=== PATIENT | female | born 1955 | race Caucasian/White ===

== ENCOUNTER 2017-04-25 08:06 | Emergency (ER) | payer MEDICARE, OTHER ==
[~2017-04-25 08:06] MED LIST: LEVE500 PO
[2017-04-25 13:16] LABS: AUTOMATED NEUTROPHIL # 2.2 TH/MM3 (1.8-7.7); BASOPHIL % 0.4 % (0.0-2.0); EOSINOPHIL % 0.9 % (0.0-4.0); HEMATOCRIT 45.3 % (35.0-46.0); HEMO FLAGS DIFF FINAL; LYMPH % 49.9 % (9.0-44.0); LYMPHOCYTE # 2.5 TH/MM3 (1.0-4.8); MEAN CELL VOLUME 100.2 FL (80.0-100.0); MEAN CORPUSCULAR HEMOGLOBIN 34.8 PG (27.0-34.0); MEAN CORPUSCULAR HGB CONC 34.7 % (32.0-36.0); MONO % 5.6 % (0.0-8.0); NEUT % 43.2 % (16.0-70.0); PLATELET COUNT 230 TH/MM3 (150-450); RED BLOOD COUNT 4.52 MIL/MM3 (4.00-5.30); RED CELL DISTRIBUTION WIDTH 13.4 % (11.6-17.2); WHITE BLOOD COUNT 5.1 TH/MM3 (4.0-11.0)
[2017-04-25] MEDS ORDERED: DULC10SU3 RECTAL (13:28)
[2017-04-25] MEDS ORDERED: TYLE325T PO (13:28)
[2017-04-25] MEDS ORDERED: LEVE500S PO (13:28)
[2017-04-25] MEDS ORDERED: LORAZEPAM 2MG/ML INJ IM (13:28)
[2017-04-25] MEDS ORDERED: MILKSUS PO (13:28)
[2017-04-25 13:32] LABS: ALKALINE PHOSPHATASE 87 U/L (45-117); ALT (GPT) 22 U/L (10-53); ANION GAP 10 MEQ/L (5-15); AST (GOT) 22 U/L (15-37); BICARBONATE 22.2 MEQ/L (21.0-32.0); BLOOD UREA NITROGEN 10 MG/DL (7-18); CHLORIDE 110 MEQ/L (98-107); GLOMERULAR FILTRATION RATE 67 ML/MIN (>89); GLUCOSE,FASTING 119 MG/DL (74-99); POTASSIUM 3.7 MEQ/L (3.5-5.1); SODIUM (NA) 142 MEQ/L (136-145); TOTAL BILIRUBIN ADULT 0.7 MG/DL (0.2-1.0)
[2017-04-25] MEDS ORDERED: LORazepam 2 MG/ML VIAL IV ONE (13:45)
[2017-04-25] MEDS ORDERED: levETIRAcetam INJ 750 MG in SODIUM CHLORIDE 0.9% INJ 100 ML IV ONE (13:45)
--- NOTE | 2017-04-25 14:10 | PD ---
HPI Chief Complaint: seizure Time Seen by Provider: 08:15 Travel History International Travel<30 days: No Contact w/Intl Traveler<30days: No Traveled to known affect area: No History of Present Illness HPI Patient is a 61-year-old female with history of Down syndrome and seizures, who is brought in by EMS from the senior care due to continued seizure activity. Her EMS, patient is on Keppra and has been taking it at the senior care, but she continues to have breakthrough seizures. Patient is unable to provide any history due to her Down syndrome and dementia. PFSH Past Medical History Cancer: No Cardiovascular Problems: No Dementia: Yes Developmental Delay: Yes Diminished Hearing: No Endocrine: No Immune Disorder: No Musculoskeletal: No Psychiatric: No Reproductive: No Respiratory: No Seizures: Yes Past Surgical History Surgical History: Unable to Obtain Social History Alcohol Use: No (na) Tobacco Use: No (na) Substance Use: No Allergies-Medications (Allergen,Severity, Reaction): Coded Allergies: No Known Allergies (Unverified , 03/19/16) Reported Meds & Prescriptions Reported Meds & Active Scripts Active Reported Milk of Magnesia Liq (Magnesium Hydroxide) 400 Mg/5 Ml Susp 30 Ml PO Q4HR PRN Dulcolax Supp (Bisacodyl) 10 Mg Supp 10 Mg RECTAL DAILY PRN Tylenol (Acetaminophen) 325 Mg Tab 650 Mg PO Q4H PRN [Lorazepam 2MG/Ml Inj] 1 Mg IM Q8HR PRN Keppra Liq (Levetiracetam) 500 Mg/5 Ml Soln 1,000 Mg PO BID Review of Systems ROS Limitations: Other: (dementia) Physical Exam Narrative GENERAL: Awake and alert, but does not answer questions. SKIN: Focused skin assessment warm/dry. No wounds or signs of infection. HEAD: Atraumatic. Normocephalic. EYES: Pupils equal and round. No scleral icterus. Extraocular movements intact. ENT: Mucous membranes pink and moist. NECK: Trachea midline. No JVD. CARDIOVASCULAR: Regular rate and rhythm. No murmur appreciated. RESPIRATORY: No accessory muscle use. Clear to auscultation. Breath sounds equal bilaterally. GASTROINTESTINAL: Abdomen soft, non-tender, nondistended. MUSCULOSKELETAL: No obvious deformities. No clubbing. No cyanosis. No edema. NEUROLOGICAL: Awake and alert, does not speak. No obvious cranial nerve deficits. Motor grossly within normal limits. Data Data Orders Orders Ct Brain W/O Iv Contrast(Rout) (04/25/17 ) Complete Blood Count With Diff (04/25/17 08:49) Compreh Metabolic Profile, Op (04/25/17 08:49) Urinalysis - C+S If Indicated (04/25/17 08:49) Lorazepam Inj (Ativan Inj) (04/25/17 13:45) Levetiracetam Inj (Keppra Inj) (04/25/17 13:45) Labs Laboratory Tests Test 04/25/17 08:49 White Blood Count 5.1 TH/MM3 Red Blood Count 4.52 MIL/MM3 Hemoglobin 15.7 GM/DL Hematocrit 45.3 % Mean Corpuscular Volume 100.2 FL Mean Corpuscular Hemoglobin 34.8 PG Mean Corpuscular Hemoglobin Concent 34.7 % Red Cell Distribution Width 13.4 % Platelet Count 230 TH/MM3 Mean Platelet Volume 7.3 FL Neutrophils (%) (Auto) 43.2 % Lymphocytes (%) (Auto) 49.9 % Monocytes (%) (Auto) 5.6 % Eosinophils (%) (Auto) 0.9 % Basophils (%) (Auto) 0.4 % Neutrophils # (Auto) 2.2 TH/MM3 Lymphocytes # (Auto) 2.5 TH/MM3 Monocytes # (Auto) 0.3 TH/MM3 Eosinophils # (Auto) 0.0 TH/MM3 Basophils # (Auto) 0.0 TH/MM3 CBC Comment DIFF FINAL Differential Comment Sodium Level 142 MEQ/L Potassium Level 3.7 MEQ/L Chloride Level 110 MEQ/L Carbon Dioxide Level 22.2 MEQ/L Anion Gap 10 MEQ/L Blood Urea Nitrogen 10 MG/DL Creatinine 0.86 MG/DL Estimat Glomerular Filtration Rate 67 ML/MIN Fasting Glucose 119 MG/DL Calcium Level 8.7 MG/DL Total Bilirubin 0.7 MG/DL Aspartate Amino Transf (AST/SGOT) 22 U/L Alanine Aminotransferase (ALT/SGPT) 22 U/L Alkaline Phosphatase 87 U/L Total Protein 7.2 GM/DL Albumin 3.1 GM/DL MDM Medical Decision Making Medical Screen Exam Complete: Yes Emergency Medical Condition: Yes Medical Record Reviewed: Yes Differential Diagnosis Seizures versus electrolyte abnormality versus dehydration Narrative Course Patient is a 61-year-old female with history of seizures and Down syndrome, brought in by EMS for seizure activity. Patient is awake and alert, but she does not speak. Exam shows no abnormalities. IV established, labs sent. Labs show no acute abnormalities. CT of her head shows no acute abnormalities. Family reported to see some twitching of her arms, which they say is seizure activity for her. She was given a dose of Ativan for this. I spoke with Dr. Barrios of neurology who suggests increasing her Keppra to 1500 mg twice a day. She is written a new prescription. Should be sent back to the senior care. Advised follow-up with neurology. Advised to return to the ED as needed for any worsening symptoms. Diagnosis Primary Impression: Observed seizure-like activity Additional Impression: Dementia Qualified Codes: F02.80 - Dementia in other diseases classified elsewhere without behavioral disturbance Patient Instructions: General Instructions, Recurrent Seizures in Adults (ED) Additional Instructions: Increase Keppra to 1500 mg twice a day. Follow-up with a neurologist. Return to the ED as needed for any worsening symptoms. Disposition: 03 DISCHARGE TO SNF Condition: Stable Ana Antunez MD Apr 25, 2017 14:10
--- NOTE | 2017-04-25 14:44 | RADRPT ---
EXAM DATE/TIME: 04/25/2017 10:15 [facility] COMPARISON: No previous studies available for comparison. INDICATIONS : Seizure. RADIATION DOSE: 24.49 CTDIvol (mGy) MEDICAL HISTORY : Downs syndrome SURGICAL HISTORY : Non-responsive. ENCOUNTER: Initial ACUITY: 1 day PAIN SCALE: 0/10 LOCATION: cranial TECHNIQUE: Multiple contiguous axial images were obtained of the head. Using automated exposure control and adj ustment of the mA and/or kV according to patient size, radiation dose was kept as low as reasonably a chievable to obtain optimal diagnostic quality images. DICOM format image data is available electro nically for review and comparison. FINDINGS: CEREBRUM: The ventricles are normal for age. Cerebral atrophy. No evidence of midline shift, mass lesion, hemor rhage or acute infarction. No extra-axial fluid collections are seen. POSTERIOR FOSSA: The cerebellum and brainstem are intact. The 4th ventricle is midline. The cerebellopontine angle i s unremarkable. EXTRACRANIAL: The visualized portion of the orbits is intact. SKULL: The calvaria is intact. No evidence of skull fracture. CONCLUSION: Cerebral atrophy without acute intracranial abnormality. Alonso Davis MD on April 25, 2017 at 10:31 Board Certified Radiologist. This report was verified electronically.
[2017-04-25 14:58] LABS: URINE COLOR YELLOW (YELLW/STRAW)
[2017-04-25 14:59] LABS: GLUCOSE,URINE NEG (NEG); KETONE, URINE 10 mg/dL (NEG)
[2017-04-25 15:00] LABS: BLOOD, URINE NEG (NEG); MUCUS URINE FEW /lpf (OCC); NITRITE,URINE NEG (NEG)
[2017-04-25 15:01] LABS: SQUAMOUS EPITHELIAL CELL URINE <1 /hpf (0-5)
[2017-04-25 15:02] LABS: BACTERIA, URINE RARE /hpf; COMMENT (UR) CATH-CULTURE IND; CULTURE IF INDICATED CATH CULTURE IND
== END 2017-04-25 14:46 ==
LOC: NEPC 08:06
DX: R56.9 Unspecified convulsions (principal); F02.80 Dementia in other diseases classified elsewhere, unspecified severity, without behavioral disturbance, psychotic disturbance, mood disturbance, and anxiety; Q90.9 Down syndrome, unspecified; F79 Unspecified intellectual disabilities
CPT/HCPCS: 70450; 80053; 81001; 85025; 87086; 96365; 96375

== ENCOUNTER 2017-12-20 07:15 | Emergency (ER) | payer MEDICARE, OTHER ==
[~2017-12-20] VITALS: Ht 124.5 cm; Wt 40.9 kg
[~2017-12-20 07:15] MED LIST changes: +DULC10SU3 RECTAL; -LEVE500 PO; +LEVE500S PO; +LORAZEPAM 2MG/ML INJ IM; +MILKSUS PO; +TYLE325T PO
[2017-12-20 07:21] VITALS: BP 94/50; PULSE 83; RESP 16; TEMP 98; O2SAT 96
--- NOTE | 2017-12-20 08:12 | PD ---
HPI Chief Complaint: Seizure Time Seen by Provider: 07:50 Travel History International Travel<30 days: No Contact w/Intl Traveler<30days: No Traveled to known affect area: No History of Present Illness HPI This patient cannot provide any history or review of systems. She has Down syndrome and dementia. She is a assisted resident. I spoke with her brother at bedside. The patient is his baseline bedbound and nonverbal and cannot feed or dress herself. She has history of seizure disorder. She takes Keppra, last time she was here it was increased to 1500 twice daily was 8 months ago. According to her brother she has been seizure-free for 2 months. She had 3 seizures during the night. She arrives appearing postictal. PFSH Past Medical History Cancer: No Cardiovascular Problems: No Dementia: Yes Developmental Delay: Yes Diminished Hearing: No Endocrine: No Immune Disorder: No Musculoskeletal: No Psychiatric: No Reproductive: No Respiratory: No Seizures: Yes ?: Not Social History Alcohol Use: No (na) Tobacco Use: No (na) Substance Use: No Allergies-Medications (Allergen,Severity, Reaction): Coded Allergies: No Known Allergies (Unverified , 03/19/16) Reported Meds & Prescriptions Reported Meds & Active Scripts Active Reported Milk of Magnesia Liq (Magnesium Hydroxide) 400 Mg/5 Ml Susp 30 Ml PO Q4HR PRN Dulcolax Supp (Bisacodyl) 10 Mg Supp 10 Mg RECTAL DAILY PRN Tylenol (Acetaminophen) 325 Mg Tab 650 Mg PO Q4H PRN [Lorazepam 2MG/Ml Inj] 1 Mg IM Q8HR PRN Keppra Liq (Levetiracetam) 500 Mg/5 Ml Soln 1,000 Mg PO BID Review of Systems ROS Limitations: Clinical Condition, Altered Mental Status, Poor Historian Physical Exam Narrative GENERAL: Down syndrome features are present. She is drowsy/postictal appearing. SKIN: Focused skin assessment reveals no rash and nodules. Skin is Warm and dry. HEAD: Atraumatic. Normocephalic. EYES: Pupils equal and round. No scleral icterus. No injection or drainage. ENT: No nasal bleeding but has crusted rhinorrhea. Mucous membranes pink and moist. Slight bruising to the tongue without laceration NECK: Trachea midline. No JVD. CARDIOVASCULAR: Regular rate and rhythm. No murmur appreciated. RESPIRATORY: No accessory muscle use. Clear to auscultation. Breath sounds equal bilaterally. GASTROINTESTINAL: Abdomen soft, non-tender, nondistended. Hepatic and splenic margins not palpable. MUSCULOSKELETAL: No obvious deformities. No clubbing. No cyanosis. No edema. NEUROLOGICAL: Normal gag reflex. Symmetric round pupils. Opens eyes to pain stimuli. She is nonverbal. Does not cooperate for motor strength or sensation testing PSYCHIATRIC: Impossible to geriatric nurse practitioner mood or affect or insight or judgment Data Data Last Documented VS Vital Signs Date Time Temp Pulse Resp B/P (MAP) Pulse Ox O2 Delivery O2 Flow Rate FiO2 12/20/17 13:00 72 16 103/60 (74) 12/20/17 07:27 96 12/20/17 07:21 98.0 Orders Orders Complete Blood Count With Diff (12/20/17 08:02) Basic Metabolic Panel (Bmp) (12/20/17 08:02) Iv Access Insert/Monitor (12/20/17 08:02) Sodium Chlorid 0.9% 500 Ml Inj (Ns 500 M (12/20/17 08:15) Labs Laboratory Tests Test 12/20/17 07:55 White Blood Count 4.5 TH/MM3 Red Blood Count 4.38 MIL/MM3 Hemoglobin 15.1 GM/DL Hematocrit 44.2 % Mean Corpuscular Volume 101.0 FL Mean Corpuscular Hemoglobin 34.6 PG Mean Corpuscular Hemoglobin Concent 34.2 % Red Cell Distribution Width 13.4 % Platelet Count 253 TH/MM3 Mean Platelet Volume 7.4 FL Neutrophils (%) (Auto) 71.6 % Lymphocytes (%) (Auto) 20.7 % Monocytes (%) (Auto) 6.8 % Eosinophils (%) (Auto) 0.3 % Basophils (%) (Auto) 0.6 % Neutrophils # (Auto) 3.2 TH/MM3 Lymphocytes # (Auto) 0.9 TH/MM3 Monocytes # (Auto) 0.3 TH/MM3 Eosinophils # (Auto) 0.0 TH/MM3 Basophils # (Auto) 0.0 TH/MM3 CBC Comment DIFF FINAL Differential Comment Blood Urea Nitrogen 15 MG/DL Creatinine 0.79 MG/DL Random Glucose 86 MG/DL Calcium Level 8.5 MG/DL Sodium Level 143 MEQ/L Potassium Level 3.9 MEQ/L Chloride Level 110 MEQ/L Carbon Dioxide Level 25.5 MEQ/L Anion Gap 8 MEQ/L Estimat Glomerular Filtration Rate 74 ML/MIN MDM Medical Decision Making Medical Screen Exam Complete: Yes Emergency Medical Condition: Yes Medical Record Reviewed: Yes Differential Diagnosis Breakthrough seizure, status epilepticus, tremor Narrative Course I have reviewed the patient's electronic medical record. She was here April 2017 with breakthrough seizure IV placed and labs sent Patient appears postictal I am giving her half liter of normal saline and then will reassess blood pressure I observed her for many hours and there is been no recurrence of seizure activity CBC and metabolic studies are reasonably normal After IV fluid her blood pressures up to 103 systolic which seems to be near her baseline We will send back to the assisted There is been no seizure in 2 months prior to today so I am not going to change her medications Diagnosis Primary Impression: Breakthrough seizure Additional Impression: Down syndrome Additional Instructions: Follow-up with assisted MD and/or neurologist Med/Other Pt SpecificInfo: Other Disposition: 03 DISCHARGE TO SNF Condition: Stable Terrell Moreno MD Dec 20, 2017 08:12
[2017-12-20] MEDS ORDERED: SODIUM CHLORID 0.9% 500 ML INJ 500 ML IV SCH (08:15)
[2017-12-20 08:26] LABS: AUTOMATED NEUTROPHIL # 3.2 TH/MM3 (1.8-7.7); BASOPHIL % 0.6 % (0.0-2.0); EOSINOPHIL % 0.3 % (0.0-4.0); HEMATOCRIT 44.2 % (35.0-46.0); HEMOGLOBIN 15.1 GM/DL (11.6-15.3); LYMPH % 20.7 % (9.0-44.0); LYMPHOCYTE # 0.9 TH/MM3 (1.0-4.8); MEAN CORPUSCULAR HEMOGLOBIN 34.6 PG (27.0-34.0); MEAN CORPUSCULAR HGB CONC 34.2 % (32.0-36.0); MEAN PLATELET VOLUME 7.4 FL (7.0-11.0); MONO % 6.8 % (0.0-8.0); MONOCYTE # 0.3 TH/MM3 (0-0.9); NEUT % 71.6 % (16.0-70.0); PLATELET COUNT 253 TH/MM3 (150-450); RED BLOOD COUNT 4.38 MIL/MM3 (4.00-5.30); RED CELL DISTRIBUTION WIDTH 13.4 % (11.6-17.2); WHITE BLOOD COUNT 4.5 TH/MM3 (4.0-11.0)
[2017-12-20 08:48] LABS: BICARBONATE 25.5 MEQ/L (21.0-32.0); CALCIUM 8.5 MG/DL (8.5-10.1); CREATININE 0.79 MG/DL (0.50-1.00)
[2017-12-20 09:07] VITALS: BP 88/62
[2017-12-20 11:00] VITALS: BP 124/70
[2017-12-20 13:00] VITALS: BP 103/60; PULSE 72; RESP 16
== END 2017-12-20 16:10 ==
LOC: NEPC 07:15
DX: R56.9 Unspecified convulsions (principal); Q90.9 Down syndrome, unspecified; F03.90 Unspecified dementia, unspecified severity, without behavioral disturbance, psychotic disturbance, mood disturbance, and anxiety; Z74.01 Bed confinement status
CPT/HCPCS: 80048; 85025; 96360; 99284; J7040

== ENCOUNTER 2018-06-17 15:25 | Inpatient (IN) ==
[2018-06-17] MEDS ORDERED: Acetaminophen 325 MG Tablet PO ONE (15:58)
[2018-06-17] MEDS ORDERED: Vancomycin Inj 1,000 MG in Sodium Chlor 0.9% Inj 250 ML IV.SIG STA (15:58)
[2018-06-17] MEDS ORDERED: MethylPREDNISolone Sod Succinate Inj 40 MG/ML Vial IV.PUSH ONE (16:04)
[2018-06-17] MEDS ORDERED: Sod Chloride 0.9% Inj 1,000 ML IV.SIG SCH (16:15)
[2018-06-17] MEDS ORDERED: Acetaminophen 650 MG Supp RECTAL ONE (16:17)
--- NOTE | 2018-06-17 16:22 | ED ---
HPI General Chief complaint: Respiratory Symptoms Stated complaint: coughing/breathing problems Time Seen by Provider: 06/17/18 15:58 Source: EMS Mode of arrival: EMS Limitations: altered mental status History of Present Illness HPI Narrative: The patient is a 63-year-old female who [facility] The patient vomited today at lunch coffee-ground emesis. Wheezing was also observed. The patient was given Zofran. EMS reports axillary temperature of 101.0. Pulse 110 with a systolic blood pressure 95. Patient has history of Down syndrome with dementia and epilepsy. History obtained from records and EMS report. Related Data Home Medications Medication Instructions Recorded Confirmed acetaminophen [Tylenol] 650 mg PO Q4H PRN 06/17/18 06/17/18 alum-mag hydroxide-simeth [Maalox 30 ml PO Q4HR PRN 06/17/18 06/17/18 Advanced] bisacodyl [Dulcolax (bisacodyl)] 10 mg OR DAILY PRN 06/17/18 06/17/18 levetiracetam 1,000 mg PO BID 06/17/18 06/17/18 loperamide 2 mg PO PRN PRN 06/17/18 06/17/18 lorazepam 1 mg IM Q8H PRN 06/17/18 06/17/18 magnesium hydroxide [Milk of 30 ml PO Q4HR PRN 06/17/18 06/17/18 Magnesia] Allergies Allergy/AdvReac Type Severity Reaction Status Date / Time No Known Allergies Allergy Verified 06/17/18 16:40 Review of Systems ROS Unobtainable ROS Unobtainable: unobtainable due to mental condition PMF Medical History Medical History Cognitive and neurobehavioral dysfunction (Acute) Down's syndrome (Acute) History of dementia (Acute) Hx of seizure disorder (Acute) Social History Social History Substance History: No History of Abuse Second Hand Smoke Exposure: No Smoking Status: Never smoker How Often Do You Have a Drink Containing Alcohol: Never Recent Travel in [place] within the Last 8 Weeks: No Recent Out of Country Travel within the Last 8 Weeks: No Exam Narrative Exam Narrative: GENERAL: 63-year-old female mild distress, Down's faces, unable to answer questions with history and physical SKIN: Focused skin assessment warm/dry. HEAD: Atraumatic. Normocephalic. EYES: Pupils equal and round. No scleral icterus. No injection or drainage. ENT: No nasal bleeding or discharge. Mucous membranes are dry. NECK: Trachea midline. No JVD. CARDIOVASCULAR: Tachycardia. Regular rhythm. RESPIRATORY: Wheezing is present bilaterally. Respiratory rate about 20. GASTROINTESTINAL: Abdomen soft, non-tender, nondistended. Hepatic and splenic margins not palpable. MUSCULOSKELETAL: No obvious deformities. No clubbing. No cyanosis. No edema. NEUROLOGICAL: Cranial nerves appear symmetric. Conjugate gaze with equal and reactive pupils. PSYCHIATRIC: Unable to assess. Course Initial Documented Vital Signs Temperature 101 F H 06/17/18 16:10 Pulse Rate 110 H 06/17/18 16:10 Respiratory Rate 28 H 06/17/18 16:10 Blood Pressure 156/68 H 06/17/18 16:10 Pulse Oximetry 90 L 06/17/18 16:10 Last Documented Vital Signs Temperature 101 F H 06/17/18 16:10 Pulse Rate 103 H 06/17/18 16:20 Respiratory Rate 24 06/17/18 16:20 Blood Pressure 156/68 H 06/17/18 16:10 Pulse Oximetry 96 06/17/18 16:20 Medical Decision Making MDM Narrative Medical decision making narrative: Patient arrives with sepsis due to fever and tachycardia.Patient arrives with sepsis due to fever and tachycardia. Symptoms brought to [facility] staff attention with coffee-ground emesis followed by wheezing on exam. The patient received albuterol nebs and 60 mg IV steroids ( instead of 125mg in keeping with guidelines). Crystalloid rehydration 30cc/kg. Lactact protocol. Cefepime and Vanco started. Blood cultures drawn. There is concern for aspiration pneumonia and/or pneumonia initially. Plain film interpretation reveals no obvious consolidation. Abdomen is nontender on exam. Urinalysis is pending which may be the etiology for fever if there is in fact no pneumonia. Upon receipt of workup hospitalist service to be paged. d/w Dr Vicente at 551pm for [facility]. Aggregate critical care time was 35 minutes. Time to perform other separately billable procedures was not included in the critical care time. My time did not include minutes spent treating any other patients simultaneously or on activities that did not directly contribute to the patient's treatment. The services I provided to this patient were to treat and/or prevent clinically significant deterioration that could result in: Septic shock, multiorgan dysfunction I provided critical care services requiring my management, as noted below: Chart data review, documentation time, medication orders and management, vital sign assessments/reviewing monitor data, ordering and reviewing lab tests, ordering and interpreting/reviewing x-rays and diagnostic studies, care of the patient and discussion of the patient with the admitting physicians. Medical Screen Exam Complete: Yes Emergency Medical Condition: Yes Differential Diagnosis Differential Diagnosis: Sepsis, severe sepsis, pneumonia, GI bleed Medical Records Medical records reviewed: Yes I reviewed the patient's medical records. Lab Data Lab results reviewed: Yes I reviewed the patient's lab results. Lab results narrative: Lactic 2.5 Result diagrams: 06/17/18 16:25 06/17/18 16:25 Lab Results 06/17/18 06/17/18 06/17/18 Range/Units 16:25 16:25 16:25 WBC 6.4 (4.0-11.0) th/mm3 RBC 4.08 (4.00-5.30) mil/mm3 Hgb 14.5 (11.6-15.3) gm/dL Hct 42.2 (35.0-46.0) % MCV 103.4 H (80.0-100.0) fL MCH 35.4 H (27.0-34.0) pg MCHC 34.3 (32.0-36.0) % RDW 13.6 (11.6-17.2) % Plt Count 197 (150-450) th/mm3 MPV 7.4 (7.0-11.0) fL Neut % (Auto) 75.4 H (16.0-70.0) % Lymph % (Auto) 18.2 (9.0-44.0) % Sutter % (Auto) 6.0 (0.0-8.0) % Eos % (Auto) 0.2 (0.0-4.0) % Baso % (Auto) 0.2 (0.0-2.0) % Neut # (Auto) 4.8 (1.8-7.7) th/mm3 Lymph # (Auto) 1.2 (1.0-4.8) th/mm3 Sutter # (Auto) 0.4 (0.0-0.9) th/mm3 Eos # (Auto) 0.0 (0.0-0.4) th/mm3 Baso # (Auto) 0.0 (0.0-0.2) th/mm3 WBC Differential . Differential Comment Auto diff final Sodium 137 (136-145) meq/L Potassium 4.3 (3.5-5.1) meq/L Chloride 103 (98-107) meq/L Carbon Dioxide 24.2 (21.0-32.0) meq/L Anion Gap 10 (5-15) meq/L BUN 19 H (7-18) mg/dL Creatinine 0.79 (0.50-1.00) mg/dL Estimated GFR 74 L (>89) mL/min Random Glucose 132 H (74-106) mg/dL Lactic Acid 2.5 H (0.4-2.0) mmol/L Calcium 8.6 (8.5-10.1) mg/dL Total Bilirubin 0.4 (0.2-1.0) mg/dL AST 22 (15-37) U/L ALT 25 (10-53) U/L Alkaline Phosphatase 71 (45-117) U/L Total Protein 7.8 (6.4-8.2) g/dL Albumin 3.1 L (3.4-5.0) g/dL Imaging Data Attestation: I personally reviewed and interpreted this imaging study as follows : Radiologist's impression: Chest X-Ray 06/17/18 15:59 CONCLUSION: Moderate cardiomegaly with mild failure. No alveolar consolidation. Discharge Plan Discharge Disposition Patient Disposition: 30 Still Patient Physicians Team ED Provider: Preston Laboy Primary Care Provider: José Haddad Rxs /Orders / Referrals /Forms Prescriptions: No Action acetaminophen [Tylenol] 325 mg Tablet 650 mg PO Q4H PRN (Reason: Pain/Discomfort/Temp above 102) RF: 0 loperamide 2 mg Capsule 2 mg PO PRN PRN (Reason: Diarrhea) RF: 0 bisacodyl [Dulcolax (bisacodyl)] 10 mg Suppository 10 mg OR DAILY PRN (Reason: If no results from Milk of Mag) RF: 0 alum-mag hydroxide-simeth [Maalox Advanced] 200-200-20 mg/5 mL Suspension 30 ml PO Q4HR PRN (Reason: Indigestion/Heartburn) RF: 0 lorazepam 2 mg/mL Syringe 1 mg IM Q8H PRN (Reason: Anxiety) RF: 0 levetiracetam 100 mg/mL Solution 1,000 mg PO BID RF: 0 magnesium hydroxide [Milk of Magnesia] 400 mg/5 mL Suspension 30 ml PO Q4HR PRN (Reason: Constipation) RF: 0 Status ED Status: With Doctor
--- NOTE | 2018-06-17 16:29 | XR ---
EXAM DATE: 06/17/2018 3:59 PM EDT AGE/SEX: 63 years / Female INDICATIONS: Fever. CLINICAL DATA: This is the patient's initial encounter. Patient reports that signs and symptoms have been present for 1 day and indicates a pain score of Nonresponsive. MEDICAL/SURGICAL HISTORY: . Down's Syndrome None. COMPARISON: [facility], CHEST SINGLE AP, 03/19/2016. . FINDINGS: Moderate cardiomegaly with mild interstitial edema. Minimal bibasilar parenchymal changes without con solidation. No pleural effusion. The portion of the bony skeleton visualized is unremarkable. CONCLUSION: Moderate cardiomegaly with mild failure. No alveolar consolidation. Electronically signed by: Silverio Stone MD 06/17/2018 4:27 PM EDT
[2018-06-17 16:56] LABS: Baso % (Auto) 0.2 % (0.0-2.0); Eos % (Auto) 0.2 % (0.0-4.0); Hematocrit 42.2 % (35.0-46.0); Hemoglobin 14.5 gm/dL (11.6-15.3); Lymph # (Auto) 1.2 th/mm3 (1.0-4.8); Lymph % (Auto) 18.2 % (9.0-44.0); Mean Corpuscular HGB Conc 34.3 % (32.0-36.0); Mean Corpuscular Hemoglobin 35.4 pg (27.0-34.0); Mean Corpuscular Volume 103.4 fL (80.0-100.0); Mean Platelet Volume 7.4 fL (7.0-11.0); Mono # (Auto) 0.4 th/mm3 (0.0-0.9); Neut # (Auto) 4.8 th/mm3 (1.8-7.7); Neut % (Auto) 75.4 % (16.0-70.0); Platelet Count 197 th/mm3 (150-450); Red Blood Count 4.08 mil/mm3 (4.00-5.30); Red Cell Distribution Width 13.6 % (11.6-17.2); White Blood Count 6.4 th/mm3 (4.0-11.0)
[2018-06-17 17:19] LABS: Albumin 3.1 g/dL (3.4-5.0); Anion Gap 10 meq/L (5-15); Aspartate Aminotransferase 22 U/L (15-37); Blood Urea Nitrogen 19 mg/dL (7-18); Calcium 8.6 mg/dL (8.5-10.1); Carbon Dioxide 24.2 meq/L (21.0-32.0); Chloride 103 meq/L (98-107); Glomerular Filtration Rate 74 mL/min (>89); Glucose,Random 132 mg/dL (74-106); Potassium 4.3 meq/L (3.5-5.1); Sodium 137 meq/L (136-145)
[2018-06-17 17:23] LABS: Alanine Aminotransferase 25 U/L (10-53); Alkaline Phosphatase 71 U/L (45-117); Total Protein 7.8 g/dL (6.4-8.2)
[2018-06-17] MEDS ORDERED: Acetaminophen 325 MG Tablet PO PRN (17:52)
[2018-06-17] MEDS ORDERED: Bisacodyl 10 MG Supp RECTAL PRN (17:52)
[2018-06-17] MEDS ORDERED: Vancomycin Consult Pharmacy OTHER PRN (19:33)
--- NOTE | 2018-06-17 19:35 | P.HPIM ---
History of Present Illness Primary Care Physician: José Haddad MD History of Present Illness: This is a 63-year-old female with a PMH of Down's Syndrome, Dementia and Seizure Disorder who was sent to the ER from SNF due to vomiting and fever of 101.0. Per report, pt had episode of coffee-ground emesis followed by wheezing and fever, concern for possible aspiration. Pt unable to provide history due to mental condition. On arrival, BP 156/68, HR 110, O2 sat 90% on RA, Temp 101. See unremarkable. Chemistry essentially unremarkable except for BUN 19. Lactic Acid 2.5. S/p Blood Cultures, Vanc/Cefepime. - Diagnosis (1) SIRS (systemic inflammatory response syndrome) (2) PNA (pneumonia) (3) Down syndrome (4) Seizure disorder Inpatient Certification: I certify that the inpatient services were ordered in accordance with Medicare regulations governing the order. This includes certification that hospital inpatient services are reasonable and necessary and in the case of services not specified as inpatient-only under 42 CFR 419.22(n), that they are appropriately provided as inpatient services in accordance to with the 2-midnight benchmark under 43 CFR 412.3(e) Estimated Total Length of Stay (Days): 3 Plans for Post Hospital Care: Home Review of Systems PAST FAMILY HISTORY: Unknown unobtainable due to mental condition PMFSH - History History Provided By: Medical Record - Medical History Medical History: Medical History (Last Updated 06/17/18 @ 16:52 by Ivis Mas) Cognitive and neurobehavioral dysfunction Down's syndrome History of dementia Hx of seizure disorder - Tobacco History Second Hand Smoke Exposure: No Smoking Status: Never smoker - Alcohol History How Often Do You Have a Drink Containing Alcohol: Never - Substance Use History Substance History: No History of Abuse - Travel History Recent Travel in the [place] Within the Last 8 Weeks: No Recent Travel Out of the Country Within the Last 8 Weeks: No - Immunization History Tetanus Immunization: Unsure Medications and Allergies Active Medications: Active Medications Acetaminophen (Tylenol) 650 mg PO Q4H PRN PRN Reason: Headache, fever, pain 1-4 Al Hydroxide/Mg Hydroxide (Milk Of Magnesia Liq) 30 ml PO Q12H PRN PRN Reason: Mild Constipation Albuterol (Duoneb Neb (Prn)) 1 ampul NEB Q15M PRN PRN Reason: WHEEZING Bisacodyl (Dulcolax Supp) 10 mg RECTAL DAILY PRN PRN Reason: SEVERE CONSITIPATION Enoxaparin Sodium (Lovenox Inj) 40 mg SQ Q24H JANNETH Sodium Chloride (Ns Inj) 1,000 mls @ 0 mls/hr IV.SIG BOLUS JANNETH Stop: 06/18/18 16:16 Last Infusion: 06/17/18 19:03 Dose: Infused Sodium Chloride (Ns Inj) 1,000 mls @ 100 mls/hr IV.CONT .Q10H JANNETH Lactulose (Lactulose Liq) 30 ml PO DAILY PRN PRN Reason: SEVERE CONSITIPATION Sennosides (Senokot) 17.2 mg PO Q12H PRN PRN Reason: Moderate Constipation Allergies Allergy/AdvReac Type Severity Reaction Status Date / Time No Known Allergies Allergy Verified 06/17/18 16:40 Home Medications Medication Instructions Recorded Confirmed Type acetaminophen [Tylenol] 650 mg PO Q4H PRN 06/17/18 06/17/18 History alum-mag hydroxide-simeth [Maalox 30 ml PO Q4HR PRN 06/17/18 06/17/18 History Advanced] bisacodyl [Dulcolax (bisacodyl)] 10 mg MT DAILY PRN 06/17/18 06/17/18 History levetiracetam 1,000 mg PO BID 06/17/18 06/17/18 History loperamide 2 mg PO PRN PRN 06/17/18 06/17/18 History lorazepam 1 mg IM Q8H PRN 06/17/18 06/17/18 History magnesium hydroxide [Milk of 30 ml PO Q4HR PRN 06/17/18 06/17/18 History Magnesia] Exam Vital signs: Vital Signs 06/17/18 16:10 06/17/18 16:20 06/17/18 19:10 Temperature 101 F H Pulse Rate 110 H 103 H 93 H Respiratory Rate 28 H 24 28 H Blood Pressure 156/68 H 133/77 Pulse Oximetry 93 L 96 97 Intake & Output 06/17/18 06/17/18 06/18/18 06:59 18:59 06:59 Intake Total 1100 / 1100 50 / 50 Balance 1100 / 1100 50 / 50 Weight 135 kg Intake: IV 1100 / 1100 50 / 50 Maxipime Inj 2,000 MG In NS Inj 100 / 100 100 ML @ 200 mls/hr IV.SIG STAT STA Rx#:[id number] NS Inj 1,000 ML @ Wide Open IV. 1000 / 1000 50 / 50 SIG BOLUS JANNETH Rx#:[id number] Narrative: PE: GENERAL: Middle-aged white female w/ Down's in no acute distress, unable to answer questions. SKIN: Focused skin assessment warm and dry. HEENT: PERRLA, EOMI. No scleral icterus or conjunctival pallor. No lid lag or facial droop. CARDIOVASCULAR: Regular rate and rhythm. No obvious murmurs to auscultation. No chest tenderness to palpation. RESPIRATORY: No obvious rhonchi or wheezing. Clear to auscultation. Breath sounds equal bilaterally. GASTROINTESTINAL: Abdomen soft, non-tender, nondistended. BS normal. MUSCULOSKELETAL: Extremities without clubbing, cyanosis, or edema. No obvious deformities. NEUROLOGICAL: Awake, alert. No focal neurologic deficits. Moving both upper and lower extremities spontaneously. PSYCHIATRIC: Appropriate mood and affect. Insight and judgment normal. Results - Labs CBC & Chem 7: 06/17/18 16:25 06/17/18 16:25 Labs: Short CBC 06/17/18 Range/Units 16:25 WBC 6.4 (4.0-11.0) th/mm3 Hgb 14.5 (11.6-15.3) gm/dL Hct 42.2 (35.0-46.0) % Plt Count 197 (150-450) th/mm3 BMP 06/17/18 16:25 Sodium 137 Potassium 4.3 Chloride 103 Carbon Dioxide 24.2 BUN 19 H Creatinine 0.79 Calcium 8.6 Liver Function 06/17/18 Range/Units 16:25 Total Bilirubin 0.4 (0.2-1.0) mg/dL AST 22 (15-37) U/L ALT 25 (10-53) U/L Alkaline Phosphatase 71 (45-117) U/L Albumin 3.1 L (3.4-5.0) g/dL - Imaging Impressions Chest X-Ray 06/17/18 15:59 CONCLUSION: Moderate cardiomegaly with mild failure. No alveolar consolidation. Caprini VTE Risk Assessment Caprini VTE Risk Assessment: No/Low Risk (score <= 1) Caprini Risk Assessment Model: Point Value = 1 Point Value = 2 Point Value = 3 Point Value = 5 Age 41-60 Minor surgery BMI > 25 kg/m2 Swollen legs Varicose veins or History of unexplained or recurrent spontaneous Oral contraceptives or hormone replacement Sepsis (< 1 month) Serious lung disease, including pneumonia (< 1 month) Abnormal pulmonary function Acute myocardial infarction Congestive heart failure (< 1 month) History of inflammatory bowel disease Medical patient at bed rest Age 61-74 Arthroscopic surgery Major open surgery (> 45 min) Laparoscopic surgery (> 45 min) Malignancy Confined to bed (> 72 hours) Immobilizing plaster cast Central venous access Age >= 75 History of VTE Family history of VTE Factor V Leiden Prothrombin [id number] Lupus anticoagulant Anticardiolipin antibodies Elevated serum homocysteine Heparin-induced thrombocytopenia Other congenital or acquired thrombophilia Stroke (< 1 month) Elective arthroplasty Hip, pelvis, or leg fracture Acute spinal cord injury (< 1 month) Prophylaxis Regimen: Total Risk Factor Score Risk Level Prophylaxis Regimen 0-1 Low Early ambulation 2 Moderate Order ONE of the following: *Sequential Compression Device (SCD) *Heparin 5000 units SQ BID 3-4 Higher Order ONE of the following medications: *Heparin 5000 units SQ TID *Enoxaparin/Lovenox 40 mg SQ daily (WT < 150 kg, CrCl > 30 mL/min) *Enoxaparin/Lovenox 30 mg SQ daily (WT < 150 kg, CrCl > 10-29 mL/min) *Enoxaparin/Lovenox 30 mg SQ BID (WT < 150 kg, CrCl > 30 mL/min) AND/OR *Sequential Compression Device (SCD) 5 or more Highest Order ONE of the following medications: *Heparin 5000 units SQ TID (Preferred with Epidurals) *Enoxaparin/Lovenox 40 mg SQ daily (WT < 150 kg, CrCl > 30 mL/min) *Enoxaparin/Lovenox 30 mg SQ daily (WT < 150 kg, CrCl > 10-29 mL/min) *Enoxaparin/Lovenox 30 mg SQ BID (WT < 150 kg, CrCl > 30 mL/min) AND *Sequential Compression Device (SCD) Assessment and Plan - Assessment (1) SIRS (systemic inflammatory response syndrome) Code(s): R65.10 - Systemic inflammatory response syndrome (SIRS) of non- infectious origin without acute organ dysfunction Status: Acute (2) PNA (pneumonia) Code(s): J18.9 - Pneumonia, unspecified organism Status: Acute (3) Down syndrome Code(s): Q90.9 - Down syndrome, unspecified Status: Acute (4) Seizure disorder Code(s): G40.909 - Epilepsy, unspecified, not intractable, without status epilepticus Status: Acute - Plan A/P: 1. SIRS: Temp 101, HR 110, Source-Unclear, Check U/a to eval for underlying UTI. S/p Blood Cultures, Vanc/Cefepime, will follow up cultures, continue broad spectrum antibiotics. IVF for hydration. Lactic Acid 2.5, repeat Lactic Acid for trend. 2. PNA: CXR w/ no acute findings, images reviewed, however concern for early aspiration pneumonia in light of vomiting and wheezing at SNF. Will monitor closely. Continue IV Abx, DuoNeb prn, repeat CXR as needed to evaluate for progression. 3. Seizure Disorder: Resume home Keppra. No reported seizure activity. 4. Down's Syndrome: w/ cognitive dysfunction and h/o Dementia, at baseline. 5. DVT Prophylaxis: SCD/Teds 6. Social work for d/c planning as needed. 7. Case discussed w/ ER physician at length, labs/records/imaging reviewed by me.
[2018-06-17] MEDS: Sod Chloride 0.9% Inj 1,000 ML IV.CONT SCH (20:35)
[2018-06-17] MEDS: Enoxaparin Inj 40 MG/0.4 ML Syringe SQ SCH (20:35)
[2018-06-18] MEDS ORDERED: Sodium Chlor 0.9% Inj 500 ML IV.SIG SCH (03:00)
[2018-06-18 04:10] LABS: Bacteria,Urine Occasional /hpf; Bilirubin,Urine Negative (Negative); Clarity,Urine Clear (Clear); Color,Urine Straw (Yellw/Straw); Glucose,Urine (UA) Negative (Negative); Hyaline Casts,Urine 1 /lpf (0-3); Leukocyte Esterase,Urine Negative (Negative); Mucus,Urine Few /lpf (Occasional); Nitrite,Urine Negative (Negative); Squamous Epithelial Cell,Urine <1 /hpf (0-5)
[2018-06-18] MEDS: Sod Chloride 0.9% Inj 1,000 ML IV.CONT SCH ×2 (06:07→13:26)
[2018-06-18] MEDS ORDERED: levETIRAcetam 500 MG Tablet PO SCH (09:00)
[2018-06-18] MEDS: levETIRAcetam 1000mg/100mL Inj 100 ML IV.SIG SCH ×2 (10:30→22:38)
[2018-06-18] MEDS ORDERED: Ampicillin/Sulbactam Inj 1,500 MG in Sodium Chloride 0.9% Inj 100 ML IV.SIG SCH (11:00)
[2018-06-18] MEDS: Ampicillin/Sulbactam Inj 3 GM in Sodium Chloride 0.9% Inj 100 ML IV.SIG SCH ×3 (11:18→23:00)
[2018-06-18] MEDS ORDERED: Vancomycin Inj 1,350 MG in Sodium Chlor 0.9% Inj 500 ML IV.SIG SCH (12:00)
[2018-06-18] MEDS ORDERED: Vancomycin Inj 1,200 MG in Sodium Chlor 0.9% Inj 250 ML IV.SIG SCH (12:00)
[2018-06-18] MEDS: Pantoprazole Inj 40 MG Vial IV.PUSH SCH ×2 (12:35→21:02)
[2018-06-18 14:51] LABS: Lactate Dehydrogenase 214 U/L (84-246)
[2018-06-18 14:52] LABS: Creatine Kinase 105 U/L (26-192)
--- NOTE | 2018-06-18 15:59 | P.PN ---
Subjective Interval history: Follow-up for coffee-ground, possible aspiration pneumonia in a patient with a history of Down syndrome. Patient is accompanied by family members. Patient is currently resting in bed. Occasionally she has jerking movements but no changes in her facial expressions. No fever or chills. She had a fever of 101 F yesterday afternoon. Physical Exam Vital signs: Vital Signs 06/17/18 16:10 06/17/18 16:20 06/17/18 19:10 Temperature 101 F H Pulse Rate 110 H 103 H 93 H Respiratory Rate 28 H 24 28 H Blood Pressure 156/68 H 133/77 Pulse Oximetry 93 L 96 97 06/17/18 20:36 06/17/18 21:37 06/17/18 22:00 Temperature 98.2 F 98.3 F Pulse Rate 89 84 Respiratory Rate 26 H 26 H 18 Blood Pressure 110/69 110/61 Pulse Oximetry 95 06/18/18 00:00 06/18/18 01:19 06/18/18 06:22 Temperature 97.5 F L 97.6 F Pulse Rate 75 83 78 Respiratory Rate 20 18 20 Blood Pressure 97/57 L 103/74 Pulse Oximetry 95 97 06/18/18 06:24 06/18/18 08:00 06/18/18 09:02 Temperature 97.7 F Pulse Rate 110 H 82 79 Respiratory Rate 30 H 19 16 Blood Pressure 106/75 Pulse Oximetry 96 95 06/18/18 12:00 Temperature 97.9 F Pulse Rate 75 Respiratory Rate 18 Blood Pressure 89/51 L Pulse Oximetry 98 Intake & Output 06/17/18 06/18/18 06/18/18 18:59 06:59 18:59 Intake Total 1100 / 1100 1900 / 1900 1200 / 1200 Output Total 450 / 450 Balance 1100 / 1100 1450 / 1450 1200 / 1200 Weight 135 kg 81.9 kg Intake: IV 1100 / 1100 1900 / 1900 1200 / 1200 NS Inj 1,000 ML @ 100 mls/hr IV 1000 / 1000 1000 / 1000 .CONT .Q10H JANNETH Rx#:[id number] Unasyn Inj 3 GM In NS Inj 100 100 / 100 ML @ 200 mls/hr IV.SIG Q6H JANNETH Rx#:[id number] Maxipime Inj 1,000 MG In NS Inj 100 / 100 100 ML @ 200 mls/hr IV.SIG Q12H JANNETH Rx#:[id number] Maxipime Inj 2,000 MG In NS Inj 100 / 100 100 ML @ 200 mls/hr IV.SIG STAT STA Rx#:[id number] NS Inj 1,000 ML @ Wide Open IV. 1000 / 1000 50 / 50 SIG BOLUS JANNETH Rx#:[id number] NS Inj 500 ML @ Wide Open IV. 500 / 500 SIG BOLUS JANNETH Rx#:[id number] Vancomycin Inj 1,000 MG In NS 250 / 250 Inj 250 ML @ 250 mls/hr IV.SIG STAT STA Rx#:[id number] Keppra 1000 mg/100 mL Premix 100 / 100 100 ML @ 400 mls/hr IV.SIG Q12H JANNETH Rx#:[id number] Output: Urine 450 / 450 Other: # Incontinent Voids 3 Date of Last Bowel Movement 06/17/18 Narrative: PE: GENERAL: Middle-aged white female w/ Down's in no acute distress, unable to answer questions. SKIN: Focused skin assessment warm and dry. HEENT: PERRLA, EOMI. No scleral icterus or conjunctival pallor. No lid lag or facial droop. CARDIOVASCULAR: Regular rate and rhythm. No obvious murmurs to auscultation. No chest tenderness to palpation. RESPIRATORY: No obvious rhonchi or wheezing. Clear to auscultation. Breath sounds equal bilaterally. GASTROINTESTINAL: Abdomen soft, non-tender, nondistended. BS normal. MUSCULOSKELETAL: Extremities without clubbing, cyanosis, or edema. No obvious deformities. NEUROLOGICAL: Awake, alert. No focal neurologic deficits. Moving both upper and lower extremities spontaneously. PSYCHIATRIC: Appropriate mood and affect. Insight and judgment normal. Results - Labs CBC & Chem 7: 06/17/18 16:25 06/17/18 16:25 Laboratory Results - last 24 hr 06/17/18 06/17/18 06/17/18 16:25 16:25 16:25 WBC 6.4 RBC 4.08 Hgb 14.5 Hct 42.2 MCV 103.4 H MCH 35.4 H MCHC 34.3 RDW 13.6 Plt Count 197 MPV 7.4 Neut % (Auto) 75.4 H Lymph % (Auto) 18.2 [place] % (Auto) 6.0 Eos % (Auto) 0.2 Baso % (Auto) 0.2 Neut # (Auto) 4.8 Lymph # (Auto) 1.2 [place] # (Auto) 0.4 Eos # (Auto) 0.0 Baso # (Auto) 0.0 WBC Differential . Differential Comment Auto diff final Sodium 137 Potassium 4.3 Chloride 103 Carbon Dioxide 24.2 Anion Gap 10 BUN 19 H Creatinine 0.79 Estimated GFR 74 L Random Glucose 132 H Lactic Acid 2.5 H Calcium 8.6 Total Bilirubin 0.4 AST 22 ALT 25 Alkaline Phosphatase 71 Lactate Dehydrogenase Total Creatine Kinase Total Protein 7.8 Albumin 3.1 L Urine Color Urine Clarity Urine pH Ur Specific Epps Urine Protein Urine Glucose (UA) Urine Ketones Urine Occult Blood Urine Nitrate Urine Bilirubin Urine Urobilinogen Ur Leukocyte Esterase Urine RBC Urine WBC Ur Squamous Epith Cells Urine Bacteria Hyaline Casts Urine Mucus Micro UA Comment Ur Microscopic Review Urine Culture Comments 06/17/18 06/18/18 06/18/18 19:55 03:20 04:46 WBC RBC Hgb Hct MCV MCH MCHC RDW Plt Count MPV Neut % (Auto) Lymph % (Auto) [place] % (Auto) Eos % (Auto) Baso % (Auto) Neut # (Auto) Lymph # (Auto) [place] # (Auto) Eos # (Auto) Baso # (Auto) WBC Differential Differential Comment Sodium Potassium Chloride Carbon Dioxide Anion Gap BUN Creatinine Estimated GFR Random Glucose Lactic Acid 3.4 H 2.6 H Calcium Total Bilirubin AST ALT Alkaline Phosphatase Lactate Dehydrogenase Total Creatine Kinase Total Protein Albumin Urine Color Straw Urine Clarity Clear Urine pH 5.0 Ur Specific Epps 1.010 Urine Protein Negative Urine Glucose (UA) Negative Urine Ketones Negative Urine Occult Blood Small H Urine Nitrate Negative Urine Bilirubin Negative Urine Urobilinogen Less than 2 Ur Leukocyte Esterase Negative Urine RBC 1 Urine WBC Less than 1 Ur Squamous Epith Cells <1 Urine Bacteria Occasional H Hyaline Casts 1 Urine Mucus Few H Micro UA Comment Culture not ind Ur Microscopic Review Not Reportable Urine Culture Comments Culture not ind 06/18/18 13:30 WBC RBC Hgb Hct MCV MCH MCHC RDW Plt Count MPV Neut % (Auto) Lymph % (Auto) [place] % (Auto) Eos % (Auto) Baso % (Auto) Neut # (Auto) Lymph # (Auto) [place] # (Auto) Eos # (Auto) Baso # (Auto) WBC Differential Differential Comment Sodium Potassium Chloride Carbon Dioxide Anion Gap BUN Creatinine Estimated GFR Random Glucose Lactic Acid Calcium Total Bilirubin AST ALT Alkaline Phosphatase Lactate Dehydrogenase 214 Total Creatine Kinase 105 Total Protein Albumin Urine Color Urine Clarity Urine pH Ur Specific Epps Urine Protein Urine Glucose (UA) Urine Ketones Urine Occult Blood Urine Nitrate Urine Bilirubin Urine Urobilinogen Ur Leukocyte Esterase Urine RBC Urine WBC Ur Squamous Epith Cells Urine Bacteria Hyaline Casts Urine Mucus Micro UA Comment Ur Microscopic Review Urine Culture Comments Microbiology 06/17/18 16:25 Blood - Peripheral Aerobic Blood Culture - Preliminary No growth in 1 day 06/17/18 16:25 Blood - Peripheral Anaerobic Blood Culture - Preliminary No growth in 1 day 06/17/18 16:25 Blood - Peripheral Aerobic Blood Culture - Preliminary No growth in 1 day 06/17/18 16:25 Blood - Peripheral Anaerobic Blood Culture - Preliminary No growth in 1 day - Imaging Impressions Chest X-Ray 06/17/18 15:59 CONCLUSION: Moderate cardiomegaly with mild failure. No alveolar consolidation. Assessment and Plan - Assessment (1) SIRS (systemic inflammatory response syndrome) Code(s): R65.10 - Systemic inflammatory response syndrome (SIRS) of non- infectious origin without acute organ dysfunction Status: Acute (2) PNA (pneumonia) Code(s): J18.9 - Pneumonia, unspecified organism Status: Acute (3) Down syndrome Code(s): Q90.9 - Down syndrome, unspecified Status: Acute (4) Seizure disorder Code(s): G40.909 - Epilepsy, unspecified, not intractable, without status epilepticus Status: Acute - Plan This is a 63-year-old female with a PMH of Down's Syndrome, Dementia and Seizure Disorder who was sent to the ER from [facility] due to vomiting and fever of 101.0. Per report, pt had episode of coffee-ground emesis followed by wheezing and fever, concern for possible aspiration. Chest x-ray did not reveal any consolidations. Lactic acid was around 2.5 on arrival. Coffee-ground emesis Possible aspiration pneumonia -Patient's hemoglobin is 14.5 on arrival -We will check CBC in the morning. However given her social clinical condition, she may benefit from an EGD -We will consult GI. -Protonix 40 mg IV twice daily -Change antibiotics from cefepime/vancomycin to Unasyn 3 g every 6 hours. -If patient remains clinically stable and afebrile we will consider switching antibiotics to Augmentin liquid. -Chest x-ray in the morning History of Down syndrome History of seizure disorder -Continue Keppra intravenously for now. Continue lorazepam as needed. Full code. SCDs.
[2018-06-18] MEDS: Enoxaparin Inj 40 MG/0.4 ML Syringe SQ SCH (17:00)
[2018-06-18 18:17] LABS: ABG Base Excess 0.1 mmol/L (-2-2); ABG PCO2 37 mmHg (38-42); ABG PO2 279 mmHg (61-120)
[2018-06-18] MEDS ORDERED: MethylPREDNISolone Sod Succinate Inj 125 MG/2 ML Vial IV.PUSH ONE (18:30)
--- NOTE | 2018-06-18 18:51 | XR ---
EXAM DATE: 06/18/2018 6:01 PM EDT AGE/SEX: 63 years / Female INDICATIONS: Shortness of breath. CLINICAL DATA: This is the patient's subsequent encounter. Patient reports that signs and symptoms h ave been present for 2 days and indicates a pain score of Nonresponsive. MEDICAL/SURGICAL HISTORY: . Down's Syndrome None. COMPARISON: C, CHEST 1V SINGLE AP, 06/17/2018. . FINDINGS: Mild bibasilar airspace disease. The cardiomediastinal contours are unremarkable. Osseous structures are intact. CONCLUSION: 1. Mild bibasilar airspace disease which may reflect atelectasis. Differential considerations includ e aspiration or pneumonia in the proper clinical setting. Electronically signed by: Albin Sandoval MD 06/18/2018 6:49 PM EDT
[2018-06-18] MEDS: MethylPREDNISolone Sod Succinate Inj 40 MG/ML Vial IV.PUSH SCH (22:38)
[2018-06-19] MEDS: MethylPREDNISolone Sod Succinate Inj 40 MG/ML Vial IV.PUSH SCH ×3 (05:11→22:01)
[2018-06-19] MEDS: Ampicillin/Sulbactam Inj 3 GM in Sodium Chloride 0.9% Inj 100 ML IV.SIG SCH ×4 (05:11→23:30)
[2018-06-19 06:03] LABS: Hematocrit 39.7 % (35.0-46.0); Hemoglobin 13.8 gm/dL (11.6-15.3); Lymph # (Auto) 0.4 th/mm3 (1.0-4.8); Lymph % (Auto) 6.8 % (9.0-44.0); Mean Corpuscular HGB Conc 34.7 % (32.0-36.0); Mean Corpuscular Hemoglobin 35.4 pg (27.0-34.0); Mean Platelet Volume 7.2 fL (7.0-11.0); Mono # (Auto) 0.1 th/mm3 (0.0-0.9); Mono % (Auto) 1.7 % (0.0-8.0); Neut # (Auto) 5.2 th/mm3 (1.8-7.7); Neut % (Auto) 91.5 % (16.0-70.0); Platelet Count 206 th/mm3 (150-450); Red Blood Count 3.89 mil/mm3 (4.00-5.30); Red Cell Distribution Width 13.2 % (11.6-17.2); White Blood Count 5.6 th/mm3 (4.0-11.0)
[2018-06-19 06:32] LABS: Alanine Aminotransferase 21 U/L (10-53); Alkaline Phosphatase 58 U/L (45-117); Anion Gap 14 meq/L (5-15); Aspartate Aminotransferase 17 U/L (15-37); Blood Urea Nitrogen 11 mg/dL (7-18); Calcium 8.1 mg/dL (8.5-10.1); Carbon Dioxide 22.7 meq/L (21.0-32.0); Chloride 106 meq/L (98-107); Glomerular Filtration Rate 48 mL/min (>89); Glucose,Random 154 mg/dL (74-106); Potassium 3.4 meq/L (3.5-5.1); Sodium 143 meq/L (136-145); Total Protein 7.7 g/dL (6.4-8.2)
[2018-06-19] MEDS: Pantoprazole Inj 40 MG Vial IV.PUSH SCH ×2 (08:15→22:01)
--- NOTE | 2018-06-19 08:52 | XR ---
EXAM DATE: 06/19/2018 8:00 AM EDT AGE/SEX: 63 years / Female INDICATIONS: Cough CLINICAL DATA: This is the patient's subsequent encounter. Patient reports that signs and symptoms h ave been present for 3 days and indicates a pain score of Nonresponsive. MEDICAL/SURGICAL HISTORY: . Down's Syndrome None. None. COMPARISON: [facility] [place], CHEST 1V SINGLE AP, 06/18/2018. [facility] [place], CHEST 1V SINGLE AP, 06/17/2018. . FINDINGS: AP semierect portable view of the chest demonstrates improved aeration of the left lower lobe as comp ared to the prior exam. No evidence of airspace consolidation. Heart size is moderately enlarged, dif fuse cephalization of pulmonary vasculature. This appears slightly worse as compared to the prior exa m. CONCLUSION: Radiographic findings concerning for volume overload versus congestive heart failure. Improved aerati on of the left lower lobe. Electronically signed by: Manda Oropeza MD 06/19/2018 8:51 AM EDT
--- NOTE | 2018-06-19 09:28 | P.PNCC ---
Subjective Subjective Remarks/Hospital Course: This is a 63-year-old female with a PMH of Down's Syndrome, Dementia and Seizure Disorder who was sent to the ER from SNF due to vomiting and fever of 101.0 on 06/17. Per report, pt had episode of coffee-ground emesis followed by wheezing and fever, concern for possible aspiration. Pt unable to provide history due to mental condition. On arrival, BP 156/68, HR 110, O2 sat 90% on RA, Temp 101. Patient was admitted by hospitalist service and initiated on empiric antibiotics. GI consult was requested for hematemesis. On 06/18 around 6 PM rapid response team was called as patient dropped O2 sats was placed on 6 L nasal cannula and transferred to the ICU. Critical care consult was requested for worsening respiratory failure. She did receive 1 dose of Lasix prior to transfer. When I evaluated the patient she was resting comfortably on 6 L nasal cannula in the ICU. She did not appear to be in any acute distress. Patient is not a very good historian and history is obtained by reviewing records and discussion with nursing staff 06/19 Patient is lying in be din NAD> On 2L oxygen. Afebrile. Lactic acid 7.7 this morning from 2.6. Objective Vital Signs / I&O: Vital Signs 06/18/18 12:00 06/18/18 16:00 06/18/18 17:22 Temperature 97.9 F 97.6 F Pulse Rate 75 79 76 Respiratory Rate 18 19 20 Blood Pressure 89/51 L 118/58 L Pulse Oximetry 98 90 L 97 06/18/18 18:00 06/18/18 18:05 06/18/18 18:15 Temperature Pulse Rate Respiratory Rate Blood Pressure Pulse Oximetry 80 L 84 L 92 L 06/18/18 18:45 06/18/18 19:00 06/18/18 20:00 Temperature 98.6 F Pulse Rate 96 H Respiratory Rate 23 Blood Pressure 111/70 Pulse Oximetry 94 L 96 92 L 06/18/18 20:55 06/19/18 00:00 06/19/18 03:52 Temperature 98.3 F Pulse Rate 93 H 99 H 106 H Respiratory Rate 24 32 H 20 Blood Pressure 147/97 H Pulse Oximetry 94 L 95 06/19/18 04:00 06/19/18 07:00 06/19/18 08:00 Temperature 98.4 F Pulse Rate 109 H Respiratory Rate 23 18 Blood Pressure 114/79 Pulse Oximetry 97 92 L 06/19/18 08:25 Temperature Pulse Rate 74 Respiratory Rate 17 Blood Pressure Pulse Oximetry 94 L Intake & Output 06/18/18 06/19/18 06/19/18 18:59 06:59 18:59 Intake Total 1650 / 1650 200 / 200 Output Total 3000 / 3000 1900 / 1900 Balance -1350 / -1350 -1700 / -1700 Weight 81.5 kg Intake: IV 1300 / 1300 200 / 200 NS Inj 1,000 ML @ 100 mls/hr IV 1000 / 1000 .CONT .Q10H JANNETH Rx#:[id number] Unasyn Inj 3 GM In NS Inj 100 200 / 200 100 / 100 ML @ 200 mls/hr IV.SIG Q6H JANNETH Rx#:[id number] Keppra 1000 mg/100 mL Premix 100 / 100 100 / 100 100 ML @ 400 mls/hr IV.SIG Q12H JANNETH Rx#:[id number] Oral 350 / 350 Output: Urine 3000 / 3000 1900 / 1900 Other: Date of Last Bowel Movement 06/17/18 06/17/18 06/17/18 # Bowel Movements 0 Result Diagrams: 06/19/18 10:33 06/19/18 10:33 Other Results: Laboratory Results - last 12 hr 06/18/18 06/18/18 06/18/18 18:40 21:13 21:44 WBC RBC Hgb Hct MCV MCH MCHC RDW Plt Count MPV Neut % (Auto) Lymph % (Auto) [place] % (Auto) Eos % (Auto) Baso % (Auto) Neut # (Auto) Lymph # (Auto) [place] # (Auto) Eos # (Auto) Baso # (Auto) WBC Differential Differential Comment Sodium Potassium Chloride Carbon Dioxide Anion Gap BUN Creatinine Estimated GFR POC Glucose 150 H Random Glucose Lactic Acid Calcium Total Bilirubin AST ALT Alkaline Phosphatase Troponin I B-Natriuretic Peptide 78 Total Protein Albumin Nasal Screen MRSA (PCR) Not detected 06/19/18 06/19/18 06/19/18 05:41 05:41 05:41 WBC 5.6 RBC 3.89 L Hgb 13.8 Hct 39.7 MCV 102.0 H MCH 35.4 H MCHC 34.7 RDW 13.2 Plt Count 206 MPV 7.2 Neut % (Auto) 91.5 H Lymph % (Auto) 6.8 L [place] % (Auto) 1.7 Eos % (Auto) 0.0 Baso % (Auto) 0.0 Neut # (Auto) 5.2 Lymph # (Auto) 0.4 L [place] # (Auto) 0.1 Eos # (Auto) 0.0 Baso # (Auto) 0.0 WBC Differential . Differential Comment Auto diff final Sodium 143 Potassium 3.4 L D Chloride 106 Carbon Dioxide 22.7 Anion Gap 14 BUN 11 Creatinine 1.15 H Estimated GFR 48 L POC Glucose Random Glucose 154 H Lactic Acid 7.7 H* Calcium 8.1 L Total Bilirubin 0.3 AST 17 ALT 21 Alkaline Phosphatase 58 Troponin I Less than 0.02 L B-Natriuretic Peptide Total Protein 7.7 Albumin 3.0 L Nasal Screen MRSA (PCR) Imaging: Abdomen/Pelvis CT 06/19/18 00:00 CONCLUSION: 1. New abnormal diffuse bladder wall thickening which may represent an acute infectious process. Correlate with laboratory evaluation. 2. Asymmetric wall thickening identified within the distal sigmoid and rectal colon. The adjacent mesenteric fat is unremarkable. 3. Osteopenia with insufficiency fractures as noted above. Chest CTA 06/19/18 00:00 CONCLUSION: 1. No evidence of PE. 2. There is mild diffuse interstitial thickening identified in a perivascular distribution. Given the overall normal size of the heart and pulmonary vessels this may reflect edema related to atypical pneumonia or viral infection. Chest X-Ray 06/19/18 08:00 CONCLUSION: Radiographic findings concerning for volume overload versus congestive heart failure. Improved aeration of the left lower lobe. Objective Remarks: GENERAL: Patient is 63 yo lying in bed in NAD SKIN: Warm and dry. HEAD: Normocephalic. EYES: No scleral icterus. No injection or drainage. NECK: Supple, trachea midline. No JVD or lymphadenopathy. CARDIOVASCULAR: Regular rate and rhythm without murmurs, gallops, or rubs. RESPIRATORY:Tachycardic. No accessory muscle use. GASTROINTESTINAL: Abdomen soft, non-tender, nondistended. MUSCULOSKELETAL: No cyanosis, or edema. Neuro: Awake Assessment and Plan - Assessment and Plan Plan: 1) Resp Insuff 2)Lactic acidemia 3)? Aspiration 4)Down syndrome 5)Seizure disorder Plan Neuro: Awake. Avoid sedatives Continue Keppra 1gm IV Q12 Pulm: Continue with oxygen keep sats >92% Bronchodilators, on solumederol 40mg Q8 CT chest: There is mild diffuse interstitial thickening identified in a perivascular distribution. CV: Monitor HR and BP keep MAP>65mmHg Serial Lactic acid monitoring till clear Give NS 1L x1 then NS @75ml/hr : Monitor renal function, electrolytes replacement per protocol. GI: On PO diet, CT abd/pelvis: Diffuse bladder wall thickening. Asymmetric wall thickening identified within the distal sigmoid and rectal colon. The adjacent mesenteric fat is unremarkable. GI is following ID: Continue abx (Unasyn)monitor for signs of infections ( Fever, WBC) Check sputum cx Strep pneumonia, Legionella urinary Ag, and Influenza screening all negative Heme: Monitor CBC Endo: Place on SSI to maintain Euglycemia GI prophylaxis- place on Protonix 40mg daily DVT prophylaxis- on Lovenox 40mg daily Addendum: lactic acid is trending down will sign off and transfer care to [facility] Level 2
--- NOTE | 2018-06-19 09:44 | P.CONCC ---
History of Present Illness Service: critical care medicine Consult date: 06/18/18 Requesting Physician: Dion Vicente Reason for Consult: acute resp failure Primary Care Provider: José Haddad MD Chief Complaint: shortness of breath History of Present Illness: This is a 63-year-old female with a PMH of Down's Syndrome, Dementia and Seizure Disorder who was sent to the ER from SNF due to vomiting and fever of 101.0 on 06/17. Per report, pt had episode of coffee-ground emesis followed by wheezing and fever, concern for possible aspiration. Pt unable to provide history due to mental condition. On arrival, BP 156/68, HR 110, O2 sat 90% on RA, Temp 101. Patient was admitted by hospitalist service and initiated on empiric antibiotics. GI consult was requested for hematemesis. On 06/18 around 6 PM rapid response team was called as patient dropped O2 sats was placed on 6 L nasal cannula and transferred to the ICU. Critical care consult was requested for worsening respiratory failure. She did receive 1 dose of Lasix prior to transfer. When I evaluated the patient she was resting comfortably on 6 L nasal cannula in the ICU. She did not appear to be in any acute distress. Patient is not a very good historian and history is obtained by reviewing records and discussion with nursing staff Review of Systems unobtainable due to mental condition PMFSH - History History Provided By: Medical Record - Medical History Medical History: Medical History (Last Reviewed 06/18/18 @ 10:28 by Anika Gonzalez, [employer]) Cognitive and neurobehavioral dysfunction Down's syndrome History of dementia Hx of seizure disorder - Tobacco History Second Hand Smoke Exposure: No Smoking Status: Never smoker - Alcohol History How Often Do You Have a Drink Containing Alcohol: Never - Substance Use History Substance History: No History of Abuse - Travel History Recent Travel in the [place] Within the Last 8 Weeks: No Recent Travel Out of the Country Within the Last 8 Weeks: No - Immunization History Tetanus Immunization: >5 Years Hx Influenza Vaccine This Season: Yes Medications and Allergies Active Medications: Active Medications Acetaminophen (Tylenol) 650 mg PO Q4H PRN PRN Reason: Headache, fever, pain 1-4 Al Hydroxide/Mg Hydroxide (Milk Of Magnesia Liq) 30 ml PO Q12H PRN PRN Reason: Mild Constipation Albuterol (Duoneb Neb (Prn)) 1 ampul NEB Q4HR NEB PRN PRN Reason: SOB/WHEEZING Last Admin: 06/19/18 03:51 Dose: 1 ampul Albuterol (Duoneb Neb (Rohit)) 1 ampul NEB Q6HR WHILE AWAKE NEB [facility] Last Admin: 06/18/18 20:55 Dose: 1 ampul Bisacodyl (Dulcolax Supp) 10 mg RECTAL DAILY PRN PRN Reason: SEVERE CONSITIPATION Enoxaparin Sodium (Lovenox Inj) 40 mg SQ Q24H [facility]OH[facility] Last Admin: 06/18/18 17:00 Dose: 40 mg Sodium Chloride (Ns Inj) 500 mls @ 0 mls/hr IV.SIG BOLUS [facility] Last Infusion: 06/18/18 06:07 Dose: Infused Levetiracetam (Keppra 1000 Mg/100 Ml Premix) 100 mls @ 400 mls/hr IV.SIG Q12H [facility] Last Infusion: 06/18/18 22:59 Dose: Infused Ampicillin Sodium/Sulbactam (Sodium 3 gm/ Sodium Chloride) 100 mls @ 200 mls/ hr IV.SIG Q6H [facility] Last Admin: 06/19/18 05:11 Dose: 200 mls/hr Lactulose (Lactulose Liq) 30 ml PO DAILY PRN PRN Reason: SEVERE CONSITIPATION Lorazepam (Ativan Inj) 1 mg IV.PUSH Q4H PRN PRN Reason: AGITATION Lorazepam (Ativan Inj) 1 mg IV.PUSH Q15M PRN PRN Reason: SEIZURES Methylprednisolone Sodium Succinate (Solumedrol Inj) 40 mg IV.PUSH Q8HR [facility] Last Admin: 06/19/18 05:11 Dose: 40 mg Pantoprazole Sodium (Protonix Inj) 40 mg IV.PUSH Q12HR [facility] Last Admin: 06/19/18 08:15 Dose: 40 mg Sennosides (Senokot) 17.2 mg PO Q12H PRN PRN Reason: Moderate Constipation Allergies Allergy/AdvReac Type Severity Reaction Status Date / Time No Known Allergies Allergy Verified 06/17/18 16:40 Home Medications Medication Instructions Recorded Confirmed Type acetaminophen [Tylenol] 650 mg PO Q4H PRN 06/17/18 06/17/18 History alum-mag hydroxide-simeth [Maalox 30 ml PO Q4HR PRN 06/17/18 06/17/18 History Advanced] bisacodyl [Dulcolax (bisacodyl)] 10 mg NC DAILY PRN 06/17/18 06/17/18 History levetiracetam 1,000 mg PO BID 06/17/18 06/17/18 History loperamide 2 mg PO PRN PRN 06/17/18 06/17/18 History lorazepam 1 mg IM Q8H PRN 06/17/18 06/17/18 History magnesium hydroxide [Milk of 30 ml PO Q4HR PRN 06/17/18 06/17/18 History Magnesia] Physical Exam Vital signs: Vital Signs 06/18/18 12:00 06/18/18 16:00 06/18/18 17:22 Temperature 97.9 F 97.6 F Pulse Rate 75 79 76 Respiratory Rate 18 19 20 Blood Pressure 89/51 L 118/58 L Pulse Oximetry 98 90 L 97 06/18/18 18:00 06/18/18 18:05 06/18/18 18:15 Temperature Pulse Rate Respiratory Rate Blood Pressure Pulse Oximetry 80 L 84 L 92 L 06/18/18 18:45 06/18/18 19:00 06/18/18 20:00 Temperature 98.6 F Pulse Rate 96 H Respiratory Rate 23 Blood Pressure 111/70 Pulse Oximetry 94 L 96 92 L 06/18/18 20:55 06/19/18 00:00 06/19/18 03:52 Temperature 98.3 F Pulse Rate 93 H 99 H 106 H Respiratory Rate 24 32 H 20 Blood Pressure 147/97 H Pulse Oximetry 94 L 95 06/19/18 04:00 06/19/18 07:00 06/19/18 08:00 Temperature 98.4 F Pulse Rate 109 H Respiratory Rate 23 18 Blood Pressure 114/79 Pulse Oximetry 97 92 L 06/19/18 08:25 Temperature Pulse Rate 74 Respiratory Rate 17 Blood Pressure Pulse Oximetry 94 L Intake & Output 06/18/18 06/19/18 06/19/18 18:59 06:59 18:59 Intake Total 1650 / 1650 200 / 200 Output Total 3000 / 3000 1900 / 1900 Balance -1350 / -1350 -1700 / -1700 Weight 81.5 kg Intake: IV 1300 / 1300 200 / 200 NS Inj 1,000 ML @ 100 mls/hr IV 1000 / 1000 .CONT .Q10H [facility]OHIT Rx#:[id number] Unasyn Inj 3 GM In NS Inj 100 200 / 200 100 / 100 ML @ 200 mls/hr IV.SIG Q6H [facility]OHIT Rx#:[id number] Keppra 1000 mg/100 mL Premix 100 / 100 100 / 100 100 ML @ 400 mls/hr IV.SIG Q12H [facility]OH[facility] Rx#:[id number] Oral 350 / 350 Output: Urine 3000 / 3000 1900 / 1900 Other: Date of Last Bowel Movement 06/17/18 06/17/18 06/17/18 # Bowel Movements 0 Narrative: HEENT/Neuro: No pallor or icterus, tongue moist, [place], Awake, alert, nonfocal grossly, moving all 4 extremities Neck: No JVD Chest/pulmonary: Scattered rhonchi bilaterally, no wheezing Cardiovascular: S1-S2 regular no gallop or murmur GI/abdomen: Soft, nontender, bowel sounds present Extremities: Warm bilaterally, no edema Assessment and Plan - Assessment and Plan Plan: 1) Acute resp failure 2)Lactic acidemia 3)? Aspiration 4)Down syndrome 5)Seizure disorder Hemetemesis Suspected sepsis Plan Continue IV Keppra, follow Neuro status. S/p lasix to mobilize fluid Empiric antibiotic coverage with Unasyn IV Check nasal washings for influenza A & B. Urine for strep pneumo and legionella Ag. Supplemental O2 Check Cardiac enzymes, BNP. 2D echo. GI consulted for ? hemetemesis. Trend lactate. PPI for GI prophylaxis. lovenox for DVT prophylaxis
[2018-06-19] MEDS ORDERED: Dextrose 50% in Water 50 ML Vial IV.PUSH PRN (09:52)
[2018-06-19] MEDS ORDERED: Sod Chloride 0.9% Inj 1,000 ML IV.SIG SCH (10:00)
[2018-06-19 10:47] LABS: Baso % (Auto) 0.1 % (0.0-2.0); Hematocrit 35.8 % (35.0-46.0); Hemoglobin 12.2 gm/dL (11.6-15.3); Lymph # (Auto) 0.4 th/mm3 (1.0-4.8); Lymph % (Auto) 8.2 % (9.0-44.0); Mean Corpuscular Hemoglobin 34.9 pg (27.0-34.0); Mean Corpuscular Volume 102.7 fL (80.0-100.0); Mono # (Auto) 0.1 th/mm3 (0.0-0.9); Mono % (Auto) 2.5 % (0.0-8.0); Neut # (Auto) 4.4 th/mm3 (1.8-7.7); Neut % (Auto) 89.2 % (16.0-70.0); Platelet Count 191 th/mm3 (150-450); Red Blood Count 3.49 mil/mm3 (4.00-5.30); Red Cell Distribution Width 13.4 % (11.6-17.2)
--- NOTE | 2018-06-19 10:58 | P.CONGI ---
History of Present Illness Consult date: 06/19/18 Chief complaint: Sepsis; Coffee ground emesis History of Present Illness: This is a 63-year-old female with a PMH of Down's Syndrome, Dementia and Seizure Disorder who was sent to the ER from SNF due to vomiting and fever of 101.0. Per report, pt had episode of coffee-ground emesis followed by wheezing and fever, concern for possible aspiration. Pt unable to provide history due to cognition status, thus, HPI obtained from nurse, EMR and brother by bed side. Pt with no previous hx of GI bleed, never had EGD before. Lactic Acid today is 7.7, on abx. Chest X-ray raised possibility of pneumonia and CHF with fluid over load. Was started on diuretics. No more reported coffee ground emesis. Hgb is 12.2 which is a decline from 14.5. No melena or hematochezia reported <Crystal Lara - Last Filed: 06/19/18 11:04> Review of Systems unobtainable due to mental condition <Crystal Lara - Last Filed: 06/19/18 11:04> PMFSH - History History Provided By: Medical Record - Medical History Medical History: Medical History (Last Reviewed 06/18/18 @ 10:28 by Anika Gonzalez, [employer]) Cognitive and neurobehavioral dysfunction Down's syndrome History of dementia Hx of seizure disorder - Tobacco History Second Hand Smoke Exposure: No Smoking Status: Never smoker - Alcohol History How Often Do You Have a Drink Containing Alcohol: Never - Substance Use History Substance History: No History of Abuse - Travel History Recent Travel in the [place] Within the Last 8 Weeks: No Recent Travel Out of the Country Within the Last 8 Weeks: No - Immunization History Tetanus Immunization: >5 Years Hx Influenza Vaccine This Season: Yes <Crystal Lara - Last Filed: 06/19/18 11:04> - Medical History Medical History: Medical History (Last Reviewed 06/18/18 @ 10:28 by Anika Gonzalez, [employer]) Cognitive and neurobehavioral dysfunction Down's syndrome History of dementia Hx of seizure disorder <Shelby Sinclair - Last Filed: 06/19/18 13:46> Medications and Allergies Active Medications: Active Medications Acetaminophen (Tylenol) 650 mg PO Q4H PRN PRN Reason: Headache, fever, pain 1-4 Al Hydroxide/Mg Hydroxide (Milk Of Magnesia Liq) 30 ml PO Q12H PRN PRN Reason: Mild Constipation Albuterol (Duoneb Neb (Prn)) 1 ampul NEB Q4HR NEB PRN PRN Reason: SOB/WHEEZING Last Admin: 06/19/18 03:51 Dose: 1 ampul Albuterol (Duoneb Neb (Rohit)) 1 ampul NEB Q6HR WHILE AWAKE NEB ROHIT Last Admin: 06/18/18 20:55 Dose: 1 ampul Bisacodyl (Dulcolax Supp) 10 mg RECTAL DAILY PRN PRN Reason: SEVERE CONSITIPATION Dextrose (D50w Vial) 50 ml IV.PUSH UNSCH PRN PRN Reason: PER HYPOGLYCEMIA PROTOCOL Enoxaparin Sodium (Lovenox Inj) 40 mg SQ Q24H ROHIT Last Admin: 06/18/18 17:00 Dose: 40 mg Glucagon (Glucagon Inj) 1 mg OTHER PRN PRN PRN Reason: for Hypoglycemia Protocol Sodium Chloride (Ns Inj) 500 mls @ 0 mls/hr IV.SIG BOLUS ROHIT Last Infusion: 06/18/18 06:07 Dose: Infused Levetiracetam (Keppra 1000 Mg/100 Ml Premix) 100 mls @ 400 mls/hr IV.SIG Q12H ROHIT Last Infusion: 06/18/18 22:59 Dose: Infused Ampicillin Sodium/Sulbactam (Sodium 3 gm/ Sodium Chloride) 100 mls @ 200 mls/ hr IV.SIG Q6H ROHIT Last Admin: 06/19/18 05:11 Dose: 200 mls/hr Sodium Chloride (Ns Inj) 1,000 mls @ 75 mls/hr IV.CONT .[id number] ROHIT Sodium Chloride (Ns Inj) 1,000 mls @ 0 mls/hr IV.SIG BOLUS ROHIT Insulin Human Regular (Novolin R Correctional Sugar Inj) 0 units SQ Q6HR ROHIT; Protocol Lactulose (Lactulose Liq) 30 ml PO DAILY PRN PRN Reason: SEVERE CONSITIPATION Lorazepam (Ativan Inj) 1 mg IV.PUSH Q4H PRN PRN Reason: AGITATION Lorazepam (Ativan Inj) 1 mg IV.PUSH Q15M PRN PRN Reason: SEIZURES Methylprednisolone Sodium Succinate (Solumedrol Inj) 40 mg IV.PUSH Q8HR ROHIT Last Admin: 06/19/18 05:11 Dose: 40 mg Pantoprazole Sodium (Protonix Inj) 40 mg IV.PUSH Q12HR ROHIT Last Admin: 06/19/18 08:15 Dose: 40 mg Sennosides (Senokot) 17.2 mg PO Q12H PRN PRN Reason: Moderate Constipation <Crystal Lara - Last Filed: 06/19/18 11:04> Active Medications: Active Medications Acetaminophen (Tylenol) 650 mg PO Q4H PRN PRN Reason: Headache, fever, pain 1-4 Al Hydroxide/Mg Hydroxide (Milk Of Magnesia Liq) 30 ml PO Q12H PRN PRN Reason: Mild Constipation Albuterol (Duoneb Neb (Prn)) 1 ampul NEB Q4HR NEB PRN PRN Reason: SOB/WHEEZING Last Admin: 06/19/18 03:51 Dose: 1 ampul Albuterol (Duoneb Neb (Rohit)) 1 ampul NEB Q6HR WHILE AWAKE NEB [facility] Last Admin: 06/19/18 12:29 Dose: 1 ampul Bisacodyl (Dulcolax Supp) 10 mg RECTAL DAILY PRN PRN Reason: SEVERE CONSITIPATION Dextrose (D50w Vial) 50 ml IV.PUSH UNSCH PRN PRN Reason: PER HYPOGLYCEMIA PROTOCOL Enoxaparin Sodium (Lovenox Inj) 40 mg SQ Q24H [facility] Last Admin: 06/18/18 17:00 Dose: 40 mg Glucagon (Glucagon Inj) 1 mg OTHER PRN PRN PRN Reason: for Hypoglycemia Protocol Sodium Chloride (Ns Inj) 500 mls @ 0 mls/hr IV.SIG BOLUS [facility] Last Infusion: 06/18/18 06:07 Dose: Infused Levetiracetam (Keppra 1000 Mg/100 Ml Premix) 100 mls @ 400 mls/hr IV.SIG Q12H [facility] Last Admin: 06/19/18 11:46 Dose: 400 mls/hr Ampicillin Sodium/Sulbactam (Sodium 3 gm/ Sodium Chloride) 100 mls @ 200 mls/ hr IV.SIG Q6H [facility] Last Admin: 06/19/18 11:46 Dose: 200 mls/hr Sodium Chloride (Ns Inj) 1,000 mls @ 75 mls/hr IV.CONT .[id number] [facility] Last Admin: 06/19/18 11:45 Dose: 75 mls/hr Sodium Chloride (Ns Inj) 1,000 mls @ 0 mls/hr IV.SIG BOLUS ROHIT Last Admin: 06/19/18 11:08 Dose: 999 mls/hr Magnesium Sulfate 4 gm/ Sodium (Chloride) 100 mls @ 50 mls/hr IV.SIG UNSCH PRN PRN Reason: For Magnesium 0.9 - 1.1 mg/dL Magnesium Sulfate 2 gm/ Sodium (Chloride) 100 mls @ 50 mls/hr IV.SIG UNSCH PRN PRN Reason: For Magnesium 1.2 - 1.6 mg/dL Potassium Chloride (Kcl 40 Meq Premix Inj) 40 meq in 100 mls @ 25 mls/hr IV.SIG Q2H PRN PRN Reason: For Potassium 2.8 - 3.2 mEq/L Potassium Chloride (Kcl 20 Meq Premix Inj) 20 meq in 100 mls @ 50 mls/hr IV.SIG Q2H PRN PRN Reason: For Potassium 3.3 - 3.5 mEq/L Potassium Chloride (Kcl 40 Meq Premix Inj) 40 meq in 100 mls @ 25 mls/hr IV.SIG UNSCH PRN PRN Reason: For Potassium 3.3 - 3.5 mEq/L Potassium Chloride (Kcl 20 Meq Premix Inj) 20 meq in 100 mls @ 50 mls/hr IV.SIG Q2H PRN PRN Reason: For Potassium 2.8 - 3.2 mEq/L Potassium Phosphate 30 mmol/ (Sodium Chloride) 260 mls @ 42 mls/hr IV.SIG UNSCH PRN PRN Reason: SEE LABEL COMMENTS Sodium Phosphate 30 mmol/ (Sodium Chloride) 260 mls @ 42 mls/hr IV.SIG UNSCH PRN PRN Reason: For Phosphorus < 2.5 mg/dL Insulin Human Regular (Novolin R Correctional Sugar Inj) 0 units SQ Q6HR [facility]; Protocol Lactulose (Lactulose Liq) 30 ml PO DAILY PRN PRN Reason: SEVERE CONSITIPATION Lorazepam (Ativan Inj) 1 mg IV.PUSH Q4H PRN PRN Reason: AGITATION Lorazepam (Ativan Inj) 1 mg IV.PUSH Q15M PRN PRN Reason: SEIZURES Magnesium Oxide (Mag-Ox) 800 mg PO UNSCH PRN PRN Reason: For Magnesium 1.2 - 1.6 mg/dL Methylprednisolone Sodium Succinate (Solumedrol Inj) 40 mg IV.PUSH Q8HR [facility] Last Admin: 06/19/18 05:11 Dose: 40 mg Pantoprazole Sodium (Protonix Inj) 40 mg IV.PUSH Q12HR [facility] Last Admin: 06/19/18 08:15 Dose: 40 mg Potassium Bicarb/Potassium Chloride (K-Lyte Cl Eff) 50 meq PO UNSCH PRN PRN Reason: For Potassium 3.3 - 3.5 mEq/L Potassium Phosphate (K-Phos Original) 2,000 mg PO Q4H PRN PRN Reason: Phosphorus Less Than 2.5 mg/dL Potassium Phosphate (K-Phos Original) 2,000 mg PO UNSCH PRN PRN Reason: SEE LABEL COMMENTS Sennosides (Senokot) 17.2 mg PO Q12H PRN PRN Reason: Moderate Constipation <Shelby Sinclair - Last Filed: 06/19/18 13:46> Allergies Allergy/AdvReac Type Severity Reaction Status Date / Time No Known Allergies Allergy Verified 06/17/18 16:40 Home Medications Medication Instructions Recorded Confirmed Type acetaminophen [Tylenol] 650 mg PO Q4H PRN 06/17/18 06/17/18 History alum-mag hydroxide-simeth [Maalox 30 ml PO Q4HR PRN 06/17/18 06/17/18 History Advanced] bisacodyl [Dulcolax (bisacodyl)] 10 mg [place] DAILY PRN 06/17/18 06/17/18 History levetiracetam 1,000 mg PO BID 06/17/18 06/17/18 History loperamide 2 mg PO PRN PRN 06/17/18 06/17/18 History lorazepam 1 mg IM Q8H PRN 06/17/18 06/17/18 History magnesium hydroxide [Milk of 30 ml PO Q4HR PRN 06/17/18 06/17/18 History Magnesia] Exam Vital signs: Vital Signs 06/18/18 12:00 06/18/18 16:00 06/18/18 17:22 Temperature 97.9 F 97.6 F Pulse Rate 75 79 76 Respiratory Rate 18 19 20 Blood Pressure 89/51 L 118/58 L Pulse Oximetry 98 90 L 97 06/18/18 18:00 06/18/18 18:05 06/18/18 18:15 Temperature Pulse Rate Respiratory Rate Blood Pressure Pulse Oximetry 80 L 84 L 92 L 06/18/18 18:45 06/18/18 19:00 06/18/18 20:00 Temperature 98.6 F Pulse Rate 96 H Respiratory Rate 23 Blood Pressure 111/70 Pulse Oximetry 94 L 96 92 L 06/18/18 20:55 06/19/18 00:00 06/19/18 03:30 Temperature 98.3 F Pulse Rate 93 H 99 H Respiratory Rate 24 32 H Blood Pressure 147/97 H 101/63 Pulse Oximetry 94 L 95 06/19/18 03:45 06/19/18 03:52 06/19/18 04:00 Temperature 98.4 F Pulse Rate 64 106 H 109 H Respiratory Rate 17 20 23 Blood Pressure 98/64 L 150/101 H Pulse Oximetry 95 94 L 06/19/18 04:15 06/19/18 04:30 06/19/18 04:45 Temperature Pulse Rate 116 H 116 H 108 H Respiratory Rate 17 17 16 Blood Pressure 134/88 114/79 115/69 Pulse Oximetry 100 97 95 06/19/18 05:00 06/19/18 05:15 06/19/18 05:30 Temperature Pulse Rate 102 H 109 H 109 H Respiratory Rate 18 22 26 H Blood Pressure 119/71 137/80 126/61 Pulse Oximetry 91 L 95 97 06/19/18 05:45 06/19/18 06:00 06/19/18 06:15 Temperature Pulse Rate 103 H 101 H 101 H Respiratory Rate 19 20 20 Blood Pressure 131/62 134/76 124/76 Pulse Oximetry 94 L 93 L 94 L 06/19/18 06:30 06/19/18 06:45 06/19/18 07:00 Temperature Pulse Rate 90 86 85 Respiratory Rate 18 17 17 Blood Pressure 127/64 106/59 L 110/59 L Pulse Oximetry 90 L 92 L 92 L 06/19/18 07:16 06/19/18 07:30 06/19/18 07:45 Temperature Pulse Rate 101 H 91 H 93 H Respiratory Rate 22 18 27 H Blood Pressure 139/71 133/71 113/83 Pulse Oximetry 97 95 98 06/19/18 08:00 06/19/18 08:01 06/19/18 08:15 Temperature 98.2 F Pulse Rate 98 H 97 H 86 Respiratory Rate 23 21 17 Blood Pressure 127/77 124/62 Pulse Oximetry 93 L 94 L 94 L 06/19/18 08:25 06/19/18 08:30 06/19/18 08:45 Temperature Pulse Rate 74 93 H 102 H Respiratory Rate 17 19 20 Blood Pressure 112/75 115/74 Pulse Oximetry 94 L 97 95 06/19/18 09:00 06/19/18 09:15 06/19/18 09:30 Temperature Pulse Rate 104 H 105 H 105 H Respiratory Rate 21 21 25 H Blood Pressure 115/68 122/73 123/75 Pulse Oximetry 91 L 95 92 L Intake & Output 06/18/18 06/19/18 06/19/18 18:59 06:59 18:59 Intake Total 1650 / 1650 200 / 200 Output Total 3000 / 3000 1900 / 1900 Balance -1350 / -1350 -1700 / -1700 Weight 81.5 kg Intake: IV 1300 / 1300 200 / 200 NS Inj 1,000 ML @ 100 mls/hr IV 1000 / 1000 .CONT .Q10H ROHIT Rx#:[id number] Unasyn Inj 3 GM In NS Inj 100 200 / 200 100 / 100 ML @ 200 mls/hr IV.SIG Q6H ROHIT Rx#:[id number] Keppra 1000 mg/100 mL Premix 100 / 100 100 / 100 100 ML @ 400 mls/hr IV.SIG Q12H ROHIT Rx#:[id number] Oral 350 / 350 Output: Urine 3000 / 3000 1900 / 1900 Other: Date of Last Bowel Movement 06/17/18 06/17/18 06/17/18 # Bowel Movements 0 - Constitutional no acute distress - Routine HEENT Exam Head: Present: normocephalic - Routine Respiratory Exam Present: rhonchi - Routine Cardiovascular Exam Present: RRR - Routine Abdominal Exam Present: soft, normoactive bowel sounds. Absent: tenderness, distended - Routine Skin Exam Present: intact, dry - Routine Neurological Exam Present: alert, altered mental status <Crystal Lara - Last Filed: 06/19/18 11:04> Vital signs: Vital Signs 06/18/18 16:00 06/18/18 17:22 06/18/18 18:00 Temperature 97.6 F Pulse Rate 79 76 Respiratory Rate 19 20 Blood Pressure 118/58 L Pulse Oximetry 90 L 97 80 L 06/18/18 18:05 06/18/18 18:15 06/18/18 18:45 Temperature Pulse Rate Respiratory Rate Blood Pressure Pulse Oximetry 84 L 92 L 94 L 06/18/18 19:00 06/18/18 20:00 06/18/18 20:55 Temperature 98.6 F Pulse Rate 96 H 93 H Respiratory Rate 23 24 Blood Pressure 111/70 Pulse Oximetry 96 92 L 94 L 06/19/18 00:00 06/19/18 03:30 06/19/18 03:45 Temperature 98.3 F Pulse Rate 99 H 64 Respiratory Rate 32 H 17 Blood Pressure 147/97 H 101/63 98/64 L Pulse Oximetry 95 95 06/19/18 03:52 06/19/18 04:00 06/19/18 04:15 Temperature 98.4 F Pulse Rate 106 H 109 H 116 H Respiratory Rate 20 23 17 Blood Pressure 150/101 H 134/88 Pulse Oximetry 94 L 100 06/19/18 04:30 06/19/18 04:45 06/19/18 05:00 Temperature Pulse Rate 116 H 108 H 102 H Respiratory Rate 17 16 18 Blood Pressure 114/79 115/69 119/71 Pulse Oximetry 97 95 91 L 06/19/18 05:15 06/19/18 05:30 06/19/18 05:45 Temperature Pulse Rate 109 H 109 H 103 H Respiratory Rate 22 26 H 19 Blood Pressure 137/80 126/61 131/62 Pulse Oximetry 95 97 94 L 06/19/18 06:00 06/19/18 06:15 06/19/18 06:30 Temperature Pulse Rate 101 H 101 H 90 Respiratory Rate 20 20 18 Blood Pressure 134/76 124/76 127/64 Pulse Oximetry 93 L 94 L 90 L 06/19/18 06:45 06/19/18 07:00 06/19/18 07:16 Temperature Pulse Rate 86 85 101 H Respiratory Rate 17 17 22 Blood Pressure 106/59 L 110/59 L 139/71 Pulse Oximetry 92 L 92 L 97 06/19/18 07:30 06/19/18 07:45 06/19/18 08:00 Temperature Pulse Rate 91 H 93 H 98 H Respiratory Rate 18 27 H 23 Blood Pressure 133/71 113/83 Pulse Oximetry 95 98 93 L 06/19/18 08:01 06/19/18 08:15 06/19/18 08:25 Temperature 98.2 F Pulse Rate 97 H 86 74 Respiratory Rate 21 17 17 Blood Pressure 127/77 124/62 Pulse Oximetry 94 L 94 L 94 L 06/19/18 08:30 06/19/18 08:45 06/19/18 09:00 Temperature Pulse Rate 93 H 102 H 104 H Respiratory Rate 19 20 21 Blood Pressure 112/75 115/74 115/68 Pulse Oximetry 97 95 91 L 06/19/18 09:15 06/19/18 09:30 06/19/18 12:30 Temperature Pulse Rate 105 H 105 H 94 H Respiratory Rate 21 25 H 24 Blood Pressure 122/73 123/75 Pulse Oximetry 95 92 L Intake & Output 06/18/18 06/19/18 06/19/18 18:59 06:59 18:59 Intake Total 1650 / 1650 300 / 300 Output Total 3000 / 3000 1900 / 1900 Balance -1350 / -1350 -1600 / -1600 Weight 81.5 kg Intake: IV 1300 / 1300 300 / 300 NS Inj 1,000 ML @ 100 mls/hr IV 1000 / 1000 .CONT .Q10H ROHIT Rx#:[id number] Unasyn Inj 3 GM In NS Inj 100 200 / 200 200 / 200 ML @ 200 mls/hr IV.SIG Q6H ROHIT Rx#:[id number] Keppra 1000 mg/100 mL Premix 100 / 100 100 / 100 100 ML @ 400 mls/hr IV.SIG Q12H ROHIT Rx#:[id number] Oral 350 / 350 Output: Urine 3000 / 3000 1900 / 1900 Other: Date of Last Bowel Movement 06/17/18 06/17/18 06/17/18 # Bowel Movements 0 <BratuShelby - Last Filed: 06/19/18 13:46> Results - Labs CBC & Chem 7: 06/19/18 10:33 06/19/18 05:41 Labs: Laboratory Results - last 24 hr 06/18/18 06/18/18 06/18/18 13:30 18:03 18:03 WBC RBC Hgb Hct MCV MCH MCHC RDW Plt Count MPV Neut % (Auto) Lymph % (Auto) [place] % (Auto) Eos % (Auto) Baso % (Auto) Neut # (Auto) Lymph # (Auto) [place] # (Auto) Eos # (Auto) Baso # (Auto) WBC Differential Differential Comment Puncture Site Right radial Cancelled Patient Temperature 98.6 Cancelled O2 Saturation 98 Cancelled ABG pH 7.43 H Cancelled ABG pCO2 37 L Cancelled ABG pO2 279 H Cancelled ABG HCO3 24 Cancelled ABG O2 Content 17.7 Cancelled ABG Base Excess 0.1 Cancelled ABG Methemoglobin 1.2 Cancelled Chris Test Present Cancelled Hemoglobin 12.4 Cancelled Carboxyhemoglobin 1.2 Cancelled O2 Delivery Device Non rebreather Cancelled Liter Flow 15.00 Cancelled Vent Setting Cancelled Inspired O2 100 Cancelled Critical Value No Cancelled Sodium Potassium Chloride Carbon Dioxide Anion Gap BUN Creatinine Estimated GFR POC Glucose Random Glucose Lactic Acid Calcium Total Bilirubin AST ALT Alkaline Phosphatase Lactate Dehydrogenase 214 Total Creatine Kinase 105 Troponin I B-Natriuretic Peptide Total Protein Albumin Nasal Screen MRSA (PCR) 06/18/18 06/18/18 06/18/18 18:40 21:13 21:44 WBC RBC Hgb Hct MCV MCH MCHC RDW Plt Count MPV Neut % (Auto) Lymph % (Auto) [place] % (Auto) Eos % (Auto) Baso % (Auto) Neut # (Auto) Lymph # (Auto) [place] # (Auto) Eos # (Auto) Baso # (Auto) WBC Differential Differential Comment Puncture Site Patient Temperature O2 Saturation ABG pH ABG pCO2 ABG pO2 ABG HCO3 ABG O2 Content ABG Base Excess ABG Methemoglobin Chris Test Hemoglobin Carboxyhemoglobin O2 Delivery Device Liter Flow Vent Setting Inspired O2 Critical Value Sodium Potassium Chloride Carbon Dioxide Anion Gap BUN Creatinine Estimated GFR POC Glucose 150 H Random Glucose Lactic Acid Calcium Total Bilirubin AST ALT Alkaline Phosphatase Lactate Dehydrogenase Total Creatine Kinase Troponin I B-Natriuretic Peptide 78 Total Protein Albumin Nasal Screen MRSA (PCR) Not detected 06/19/18 06/19/18 06/19/18 05:41 05:41 05:41 WBC 5.6 RBC 3.89 L Hgb 13.8 Hct 39.7 MCV 102.0 H MCH 35.4 H MCHC 34.7 RDW 13.2 Plt Count 206 MPV 7.2 Neut % (Auto) 91.5 H Lymph % (Auto) 6.8 L [place] % (Auto) 1.7 Eos % (Auto) 0.0 Baso % (Auto) 0.0 Neut # (Auto) 5.2 Lymph # (Auto) 0.4 L [place] # (Auto) 0.1 Eos # (Auto) 0.0 Baso # (Auto) 0.0 WBC Differential . Differential Comment Auto diff final Puncture Site Patient Temperature O2 Saturation ABG pH ABG pCO2 ABG pO2 ABG HCO3 ABG O2 Content ABG Base Excess ABG Methemoglobin Chris Test Hemoglobin Carboxyhemoglobin O2 Delivery Device Liter Flow Vent Setting Inspired O2 Critical Value Sodium 143 Potassium 3.4 L D Chloride 106 Carbon Dioxide 22.7 Anion Gap 14 BUN 11 Creatinine 1.15 H Estimated GFR 48 L POC Glucose Random Glucose 154 H Lactic Acid 7.7 H* Calcium 8.1 L Total Bilirubin 0.3 AST 17 ALT 21 Alkaline Phosphatase 58 Lactate Dehydrogenase Total Creatine Kinase Troponin I Less than 0.02 L B-Natriuretic Peptide Total Protein 7.7 Albumin 3.0 L Nasal Screen MRSA (PCR) 06/19/18 09:53 WBC RBC Hgb Hct MCV MCH MCHC RDW Plt Count MPV Neut % (Auto) Lymph % (Auto) [place] % (Auto) Eos % (Auto) Baso % (Auto) Neut # (Auto) Lymph # (Auto) [place] # (Auto) Eos # (Auto) Baso # (Auto) WBC Differential Differential Comment Puncture Site Patient Temperature O2 Saturation ABG pH ABG pCO2 ABG pO2 ABG HCO3 ABG O2 Content ABG Base Excess ABG Methemoglobin Chris Test Hemoglobin Carboxyhemoglobin O2 Delivery Device Liter Flow Vent Setting Inspired O2 Critical Value Sodium Potassium Chloride Carbon Dioxide Anion Gap BUN Creatinine Estimated GFR POC Glucose 159 H Random Glucose Lactic Acid Calcium Total Bilirubin AST ALT Alkaline Phosphatase Lactate Dehydrogenase Total Creatine Kinase Troponin I B-Natriuretic Peptide Total Protein Albumin Nasal Screen MRSA (PCR) - Imaging Impressions Chest X-Ray 06/18/18 18:01 CONCLUSION: 1. Mild bibasilar airspace disease which may reflect atelectasis. Differential considerations include aspiration or pneumonia in the proper clinical setting. Chest X-Ray 06/19/18 08:00 CONCLUSION: Radiographic findings concerning for volume overload versus congestive heart failure. Improved aeration of the left lower lobe. <Crystal Lara - Last Filed: 06/19/18 11:04> - Labs CBC & Chem 7: 06/19/18 10:33 06/19/18 10:33 Labs: Laboratory Results - last 24 hr 06/18/18 06/18/18 06/18/18 13:30 18:03 18:03 WBC RBC Hgb Hct MCV MCH MCHC RDW Plt Count MPV Neut % (Auto) Lymph % (Auto) [place] % (Auto) Eos % (Auto) Baso % (Auto) Neut # (Auto) Lymph # (Auto) [place] # (Auto) Eos # (Auto) Baso # (Auto) WBC Differential Differential Comment Puncture Site Right radial Cancelled Patient Temperature 98.6 Cancelled O2 Saturation 98 Cancelled ABG pH 7.43 H Cancelled ABG pCO2 37 L Cancelled ABG pO2 279 H Cancelled ABG HCO3 24 Cancelled ABG O2 Content 17.7 Cancelled ABG Base Excess 0.1 Cancelled ABG Methemoglobin 1.2 Cancelled Chris Test Present Cancelled Hemoglobin 12.4 Cancelled Carboxyhemoglobin 1.2 Cancelled O2 Delivery Device Non rebreather Cancelled Liter Flow 15.00 Cancelled Vent Setting Cancelled Inspired O2 100 Cancelled Critical Value No Cancelled Sodium Potassium Chloride Carbon Dioxide Anion Gap BUN Creatinine Estimated GFR POC Glucose Random Glucose Lactic Acid Calcium Phosphorus Magnesium Total Bilirubin AST ALT Alkaline Phosphatase Lactate Dehydrogenase 214 Total Creatine Kinase 105 Troponin I B-Natriuretic Peptide Total Protein Albumin Nasal Screen MRSA (PCR) 06/18/18 06/18/18 06/18/18 18:40 21:13 21:44 WBC RBC Hgb Hct MCV MCH MCHC RDW Plt Count MPV Neut % (Auto) Lymph % (Auto) [place] % (Auto) Eos % (Auto) Baso % (Auto) Neut # (Auto) Lymph # (Auto) [place] # (Auto) Eos # (Auto) Baso # (Auto) WBC Differential Differential Comment Puncture Site Patient Temperature O2 Saturation ABG pH ABG pCO2 ABG pO2 ABG HCO3 ABG O2 Content ABG Base Excess ABG Methemoglobin Chris Test Hemoglobin Carboxyhemoglobin O2 Delivery Device Liter Flow Vent Setting Inspired O2 Critical Value Sodium Potassium Chloride Carbon Dioxide Anion Gap BUN Creatinine Estimated GFR POC Glucose 150 H Random Glucose Lactic Acid Calcium Phosphorus Magnesium Total Bilirubin AST ALT Alkaline Phosphatase Lactate Dehydrogenase Total Creatine Kinase Troponin I B-Natriuretic Peptide 78 Total Protein Albumin Nasal Screen MRSA (PCR) Not detected 06/19/18 06/19/18 06/19/18 05:41 05:41 05:41 WBC 5.6 RBC 3.89 L Hgb 13.8 Hct 39.7 MCV 102.0 H MCH 35.4 H MCHC 34.7 RDW 13.2 Plt Count 206 MPV 7.2 Neut % (Auto) 91.5 H Lymph % (Auto) 6.8 L [place] % (Auto) 1.7 Eos % (Auto) 0.0 Baso % (Auto) 0.0 Neut # (Auto) 5.2 Lymph # (Auto) 0.4 L [place] # (Auto) 0.1 Eos # (Auto) 0.0 Baso # (Auto) 0.0 WBC Differential . Differential Comment Auto diff final Puncture Site Patient Temperature O2 Saturation ABG pH ABG pCO2 ABG pO2 ABG HCO3 ABG O2 Content ABG Base Excess ABG Methemoglobin Chris Test Hemoglobin Carboxyhemoglobin O2 Delivery Device Liter Flow Vent Setting Inspired O2 Critical Value Sodium 143 Potassium 3.4 L D Chloride 106 Carbon Dioxide 22.7 Anion Gap 14 BUN 11 Creatinine 1.15 H Estimated GFR 48 L POC Glucose Random Glucose 154 H Lactic Acid 7.7 H* Calcium 8.1 L Phosphorus Magnesium Total Bilirubin 0.3 AST 17 ALT 21 Alkaline Phosphatase 58 Lactate Dehydrogenase Total Creatine Kinase Troponin I Less than 0.02 L B-Natriuretic Peptide Total Protein 7.7 Albumin 3.0 L Nasal Screen MRSA (PCR) 06/19/18 06/19/18 06/19/18 09:53 10:33 10:33 WBC 5.0 RBC 3.49 L Hgb 12.2 Hct 35.8 MCV 102.7 H MCH 34.9 H MCHC 34.0 RDW 13.4 Plt Count 191 MPV 7.0 Neut % (Auto) 89.2 H Lymph % (Auto) 8.2 L [place] % (Auto) 2.5 Eos % (Auto) 0.0 Baso % (Auto) 0.1 Neut # (Auto) 4.4 Lymph # (Auto) 0.4 L [place] # (Auto) 0.1 Eos # (Auto) 0.0 Baso # (Auto) 0.0 WBC Differential . Differential Comment Auto diff final Puncture Site Patient Temperature O2 Saturation ABG pH ABG pCO2 ABG pO2 ABG HCO3 ABG O2 Content ABG Base Excess ABG Methemoglobin Chris Test Hemoglobin Carboxyhemoglobin O2 Delivery Device Liter Flow Vent Setting Inspired O2 Critical Value Sodium 145 Potassium 3.4 L Chloride 110 H Carbon Dioxide 25.2 Anion Gap 10 BUN 11 Creatinine 0.92 Estimated GFR 62 L POC Glucose 159 H Random Glucose 143 H Lactic Acid Calcium 7.5 L Phosphorus 2.2 L Magnesium 1.9 Total Bilirubin 0.4 AST 13 L ALT 19 Alkaline Phosphatase 50 Lactate Dehydrogenase Total Creatine Kinase Troponin I B-Natriuretic Peptide Total Protein 6.6 D Albumin 2.6 L Nasal Screen MRSA (PCR) 06/19/18 06/19/18 10:33 11:50 WBC RBC Hgb Hct MCV MCH MCHC RDW Plt Count MPV Neut % (Auto) Lymph % (Auto) [place] % (Auto) Eos % (Auto) Baso % (Auto) Neut # (Auto) Lymph # (Auto) [place] # (Auto) Eos # (Auto) Baso # (Auto) WBC Differential Differential Comment Puncture Site Patient Temperature O2 Saturation ABG pH ABG pCO2 ABG pO2 ABG HCO3 ABG O2 Content ABG Base Excess ABG Methemoglobin Chris Test Hemoglobin Carboxyhemoglobin O2 Delivery Device Liter Flow Vent Setting Inspired O2 Critical Value Sodium Potassium Chloride Carbon Dioxide Anion Gap BUN Creatinine Estimated GFR POC Glucose 147 H Random Glucose Lactic Acid 3.5 H Calcium Phosphorus Magnesium Total Bilirubin AST ALT Alkaline Phosphatase Lactate Dehydrogenase Total Creatine Kinase Troponin I B-Natriuretic Peptide Total Protein Albumin Nasal Screen MRSA (PCR) - Imaging Impressions Chest X-Ray 06/18/18 18:01 CONCLUSION: 1. Mild bibasilar airspace disease which may reflect atelectasis. Differential considerations include aspiration or pneumonia in the proper clinical setting. Chest X-Ray 06/19/18 08:00 CONCLUSION: Radiographic findings concerning for volume overload versus congestive heart failure. Improved aeration of the left lower lobe. <Shelby Sinclair - Last Filed: 06/19/18 13:46> Assessment and Plan - Plan - coffee-ground emesis One episode of coffee-ground emesis followed by wheezing and fever, concern for possible aspiration. Pt unable to provide history due to cognition status, thus, HPI obtained from nurse, EMR and brother by bed side. Pt with no previous hx of GI bleed, never had EGD before. Hgb is 12.2 which is a decline from 14.5. No melena or hematochezia reported - concern for possible aspiration. s/p evaluation by ST who recommended puree diet and thin liquid - Sepsis- On admission Lactic Acid 2.5. today is 7.7, was started on abx. blood cx negative so far - CHF with fluid over load- Echo pending, diuretics - Acute respiratory failure- per ccm on o2 2L via NC - PMH of Down's Syndrome, Dementia and Seizure Disorder per CCM Plan: - Diet per CCM - EGD in am if stable - Consents, brother is agreeing - CT of a/p ordered and pending - Monitor hh - Transfuse as needed - Cont. ppi - Supportive care - Pt seen and examined by Dr. sinclair and myself <Crystal Lara - Last Filed: 06/19/18 11:04> - Attending Attestation seen, examined agree with above <Shelby Sinclair - Last Filed: 06/19/18 13:46>
[2018-06-19 11:10] LABS: Albumin 2.6 g/dL (3.4-5.0); Anion Gap 10 meq/L (5-15); Aspartate Aminotransferase 13 U/L (15-37); Blood Urea Nitrogen 11 mg/dL (7-18); Calcium 7.5 mg/dL (8.5-10.1); Carbon Dioxide 25.2 meq/L (21.0-32.0); Chloride 110 meq/L (98-107); Glomerular Filtration Rate 62 mL/min (>89); Glucose,Random 143 mg/dL (74-106); Magnesium 1.9 mg/dL (1.5-2.5); Potassium 3.4 meq/L (3.5-5.1); Sodium 145 meq/L (136-145)
[2018-06-19 11:11] LABS: Alanine Aminotransferase 19 U/L (10-53); Phosphorus 2.2 mg/dL (2.5-4.9)
[2018-06-19 11:13] LABS: Alkaline Phosphatase 50 U/L (45-117); Total Protein 6.6 g/dL (6.4-8.2)
[2018-06-19] MEDS ORDERED: Potassium Phosphate 500 MG Soluble Tablet PO PRN ×2 (11:39)
[2018-06-19] MEDS ORDERED: Potassium Phosphate Inj 30 MMOL in Sodium Chlor 0.9% Inj 250 ML IV.SIG PRN (11:39)
[2018-06-19] MEDS ORDERED: Potassium Chlor 40 mEq Premix 40 MEQ/100 ML PIGGYBACK IV.SIG PRN ×2 (11:39)
[2018-06-19] MEDS ORDERED: Sodium Phosphate Inj 30 MMOL in Sodium Chlor 0.9% Inj 250 ML IV.SIG PRN (11:39)
[2018-06-19] MEDS ORDERED: Magnesium Oxide 400 MG Tablet PO PRN (11:39)
[2018-06-19] MEDS ORDERED: Magnesium Sulfate Inj 4 GM in Sodium Chlor 0.9% Inj 92 ML IV.SIG PRN (11:39)
[2018-06-19] MEDS ORDERED: Magnesium Sulfate Inj 2 GM in Sodium Chlor 0.9% Inj 96 ML IV.SIG PRN (11:39)
[2018-06-19] MEDS ORDERED: Potassium Chlor 20 mEq Premix 20 MEQ/100 ML PIGGYBACK IV.SIG PRN ×2 (11:39)
[2018-06-19] MEDS ORDERED: Potassium Chloride 25 MEQ Effervescent Tablet PO PRN (11:39)
[2018-06-19] MEDS: Sod Chloride 0.9% Inj 1,000 ML IV.CONT SCH (11:45)
[2018-06-19] MEDS: levETIRAcetam 1000mg/100mL Inj 100 ML IV.SIG SCH ×2 (11:46→22:02)
--- NOTE | 2018-06-19 13:50 | CT ---
EXAM DATE: 06/19/2018 12:57 PM EDT AGE/SEX: 63 years / Female INDICATIONS: Lactic Acidemia CLINICAL DATA: This is the patient's initial encounter. Patient reports that signs and symptoms have been present for 1 day and indicates a pain score of 4/10. MEDICAL/SURGICAL HISTORY: Dementia. Seizures. Down's Syndrome None. ORAL CONTRAST: No oral contrast ingested. RADIATION DOSE: 16.01 CTDI (mGy) COMPARISON: [facility], CT ABDOMEN & PELVIS W CONTRAST, 01/21/2016. . TECHNIQUE: Multiple contiguous axial images were obtained through the abdomen and pelvis following b olus infusion of 75ML ml Omnipaque 350 (iohexol) nonionic water-soluble contrast as a cumulative do se for multiple exams. No oral contrast ingested. Using automated exposure control and adjustment of the mA and/or kV according to patient size, radiation dose was kept as low as reasonably achievable to obtain optimal diagnostic quality images. DICOM format image data is available electronically for review and comparison. FINDINGS: Lower Lungs: Mild bilateral dependent atelectasis. Liver: The liver has a homogeneous density without space-occupying lesion. There is no dilation of th e biliary tree. Spleen: Homogeneous density without enlargement. Pancreas: Unremarkable without mass or calcification. Kidneys: Bilateral benign appearing renal cysts. No evidence of concerning mass, hydronephrosis or s tones. The ureters are normal in caliber. Adrenal Glands: Unremarkable. Aorta: The aorta and proximal iliac vessels are grossly unremarkable without aneurysmal dilation. Bowel/Mesentery: There is circumferential wall thickening identified within the region of the rectum and distal sigmoid colon. The remainder of the large bowel is normal in appearance. Small bowel is u nremarkable. Abdominal Wall: No evidence of hernia. There is a small amount of subcutaneous air and adjacent subc utaneous fat stranding identified within the left mid abdomen. Correlate for site of injection. Retroperitoneum: No evidence of adenopathy in the retrocrural, para-aortic, or deep pelvic regions. Bladder: There is significant circumferential wall thickening of the bladder measuring up to 8 mm in thickness.. Reproductive Organs: No abnormal masses or calcifications seen. Inguinal: The inguinal region is unremarkable without evidence of adenopathy. Bony Structures: Severe wedge compression deformity involving the T12 vertebral body and mild wedgin g of the L1 vertebral body with preservation of the adjacent disc spaces. There is mild loss of verte bral body height of L4 as compared to the adjacent L3 and L5 vertebral bodies. There is grade 1 anter olisthesis of L4 on L5 secondary to severe facet degenerative changes. CONCLUSION: 1. New abnormal diffuse bladder wall thickening which may represent an acute infectious process. Cor relate with laboratory evaluation. 2. Asymmetric wall thickening identified within the distal sigmoid and rectal colon. The adjacent me senteric fat is unremarkable. 3. Osteopenia with insufficiency fractures as noted above. Electronically signed by: Manda Oropeza MD 06/19/2018 1:49 PM EDT
--- NOTE | 2018-06-19 13:59 | CT ---
EXAM DATE: 06/19/2018 12:57 PM EDT AGE/SEX: 63 years / Female INDICATIONS: Rule out Pulmonary Embolism CLINICAL DATA: This is the patient's initial encounter. Patient reports that signs and symptoms have been present for 1 day and indicates a pain score of 4/10. MEDICAL/SURGICAL HISTORY: Dementia. Seizures. Down's Syndrome None. RADIATION DOSE: 8.49 CTDI (mGy) COMPARISON: [facility] [place], CHEST 1V SINGLE AP, 06/19/2018. C, CHEST 1V SINGLE AP, 06/18/2018. . TECHNIQUE: Volumetric scanning was performed using a multi-row detector CT scanner during bolus infu ginette of 75ml ml Omnipaque 350 (iohexol) nonionic water-soluble contrast as a cumulative dose for mul tiple exams. The data was post processed with a variety of visualization algorithms including full vo lume maximum intensity projection and sliding thin slab reformation. Using automated exposure control and adjustment of the mA and/or kV according to patient size, radiation dose was kept as low as reas onably achievable to obtain optimal diagnostic quality images. DICOM format image data is available electronically for review and comparison. FINDINGS: Pulmonary Arteries: No filling defects are seen in the pulmonary arteries out to the subsegmental ve ssels. The left and right pulmonary arteries are normal in diameter. Lung: No evidence of airspace consolidation. There is interstitial thickening present in a perivascu lar distribution and mild bilateral dependent atelectasis. Effusion: None. Mediastinum: No evidence of mediastinal or hilar adenopathy. Other: The axilla is unremarkable. CONCLUSION: 1. No evidence of PE. 2. There is mild diffuse interstitial thickening identified in a perivascular distribution. Given th e overall normal size of the heart and pulmonary vessels this may reflect edema related to atypical p neumonia or viral infection. Electronically signed by: Manda Oropeza MD 06/19/2018 1:57 PM EDT
[2018-06-19] MEDS: Insulin NovoLIN Regular Correctional Sugar Inj SQ SCH ×2 (14:18→17:15)
--- NOTE | 2018-06-19 14:54 | ECHRPT ---
Indication: SHORTNESS OF BREATH CONCLUSIONS The left ventricular systolic function is normal with an estimated ejection fraction in the range of 60-65%. Normal left ventricular size. Wall thickness is normal. No regional wall motion abnormalities are present. The aortic valve is not well visualized. [id number] aortic valve regurgitation. The tricuspid valve is not well visualized. There is trace tricuspid valve regurgitation. The estimated pulmonary arterial pressure is 37 mmHg. The inferior vena cava was not well visualized. BP: / HR: Rhythm: Sinus MEASUREMENTS (Male / Female) Normal Values Technical Quality:Very technically difficult study 2D ECHO LV Diastolic Diameter PLAX 3.4 cm 4.2 - 5.9 / 3.9 - 5.3 cm IVS Diastolic Thickness 1.0 cm 0.6 - 1.0 / 0.6 - 0.9 cm LVPW Diastolic Thickness 1.0 cm 0.6 - 1.0 / 0.6 - 0.9 cm LV Relative Wall Thickness 0.6 LVOT Diameter 1.8 cm LV Ejection Fraction MOD 4C 62.7 % LV Ejection Fraction 4C AL 64.0 % M-MODE Aortic Root Diameter MM 1.5 cm LA Systolic Diameter MM 2.7 cm LA Ao Ratio MM 1.8 AV Cusp Separation MM 1.2 cm DOPPLER AV Peak Velocity 175.0 cm/s AV Peak Gradient 12.3 mmHg AI Peak Velocity 430.0 cm/s AI Peak Gradient 74.0 mmHg AI Pressure Half Time 316.0 ms LVOT Peak Velocity 49.3 cm/s LVOT Peak Gradient 1.0 mmHg AV Area Cont Eq pk 0.7 cm MV Area PHT 4.8 cm Mitral E Point Velocity 103.0 cm/s Mitral A Point Velocity 110.0 cm/s Mitral E to A Ratio 0.9 TR Peak Velocity 259.0 cm/s TR Peak Gradient 26.8 mmHg Right Atrial Pressure 10.0 mmHg Pulmonary Artery Systolic Pressu 36.8 mmHg Right Ventricular Systolic Press 36.8 mmHg PV Peak Velocity 113.0 cm/s PV Peak Gradient 5.1 mmHg FINDINGS LEFT VENTRICLE The left ventricular systolic function is normal with an estimated ejection fraction in the range of 60-65%. Normal left ventricular size. Wall thickness is normal. No regional wall motion abnormalities are present. RIGHT VENTRICLE Normal right ventricular size and systolic function. LEFT ATRIUM The left atrial size is normal. RIGHT ATRIUM The right atrial size is normal. ATRIAL SEPTUM Normal atrial septal thickness without atrial level shunting by limited color doppler interrogation. AORTA The aortic root and proximal ascending aorta are normal in size on limited imaging. MITRAL VALVE Structurally normal mitral valve. No mitral valve stenosis or regurgitation. AORTIC VALVE The aortic valve is not well visualized. [id number] aortic valve regurgitation. TRICUSPID VALVE The tricuspid valve is not well visualized. There is trace tricuspid valve regurgitation. The estimated pulmonary arterial pressure is 37 mmHg. PULMONARY VALVE The pulmonary valve is not well visualized. VESSELS The inferior vena cava was not well visualized. PERICARDIUM No pericardial effusion. Moisés Ross MD, FACC (Electronically Signed) Final Date:19 June 2018 14:53
[2018-06-19] MEDS: Enoxaparin Inj 40 MG/0.4 ML Syringe SQ SCH (17:14)
[2018-06-20] MEDS: Sod Chloride 0.9% Inj 1,000 ML IV.CONT SCH ×2 (01:54→15:39)
[2018-06-20] MEDS: Insulin NovoLIN Regular Correctional Sugar Inj SQ SCH ×4 (01:55→17:45)
[2018-06-20] MEDS: Ampicillin/Sulbactam Inj 3 GM in Sodium Chloride 0.9% Inj 100 ML IV.SIG SCH ×4 (06:07→23:23)
[2018-06-20] MEDS: MethylPREDNISolone Sod Succinate Inj 40 MG/ML Vial IV.PUSH SCH ×3 (06:08→21:27)
[2018-06-20 07:04] LABS: Baso % (Auto) 0.1 % (0.0-2.0); Hematocrit 36.6 % (35.0-46.0); Hemoglobin 12.3 gm/dL (11.6-15.3); Lymph # (Auto) 0.9 th/mm3 (1.0-4.8); Lymph % (Auto) 12.3 % (9.0-44.0); Mean Corpuscular HGB Conc 33.6 % (32.0-36.0); Mean Corpuscular Hemoglobin 34.8 pg (27.0-34.0); Mean Corpuscular Volume 103.4 fL (80.0-100.0); Mean Platelet Volume 7.4 fL (7.0-11.0); Mono # (Auto) 0.3 th/mm3 (0.0-0.9); Mono % (Auto) 4.3 % (0.0-8.0); Neut # (Auto) 5.9 th/mm3 (1.8-7.7); Neut % (Auto) 83.3 % (16.0-70.0); Platelet Count 197 th/mm3 (150-450); Red Blood Count 3.54 mil/mm3 (4.00-5.30); Red Cell Distribution Width 13.3 % (11.6-17.2); White Blood Count 7.1 th/mm3 (4.0-11.0)
[2018-06-20] MEDS: Pantoprazole Inj 40 MG Vial IV.PUSH SCH ×2 (08:00→21:27)
[2018-06-20] MEDS ORDERED: Dexmedetomidine Inj 200 MCG/2 ML Vial ONE (08:53)
[2018-06-20] MEDS ORDERED: Ketamine Inj 50 MG/5 ML Syringe IV.PUSH ONE (08:58)
[2018-06-20] MEDS ORDERED: Lidocaine PF 1% Inj 5 ML Syringe OTHER ONE (09:11)
[2018-06-20] MEDS ORDERED: Glycopyrrolate Inj 1 MG/5 ML Syringe IV.PUSH ONE (09:11)
--- NOTE | 2018-06-20 09:26 | GIPROC ---
[facility] [address] [facility]. [facility], [address] EGD PROCEDURE REPORT EXAM DATE: 06/20/2018 PATIENT NAME: Shagufta Feliciano MR #: [id number] BIRTHDATE: 1955 ATTENDING: Shelby Herndon MD ORDER #: [id number] PLC PROGRAMMER: Cheli Ha and Dana Rosario STATUS: inpatient INDICATIONS: The patient is a 63 yr old female here for an EGD due to cofee ground emesis PROCEDURE PERFORMED: EGD w/ biopsy MEDICATIONS: None and Per Anesthesia. TOPICAL ANESTHETIC: none CONSENT: The patient understands the risks and benefits of the procedure and understands that these risks include, but are not limited to: sedation, allergic reaction, infection, perforation and/or bleeding. Alternative means of evaluation and treatment include, among others: physical exam, x-rays, and/or surgical intervention. The patient elects to proceed with this endoscopic procedure. medical equipment was checked for proper function. Hand hygiene and appropriate measures for infection prevention was taken. After the risks, benefits and alternatives of the procedure were thoroughly explained, Informed consent was verified, confirmed and timeout was successfully executed by the treatment team. The patient was anesthetized with topical anesthesia and the Pentax [id number] endoscope was introduced through the mouth and advanced to the second portion of the duodenum. Retroflexed views revealed a hiatal hernia The gastroscope was then slowly withdrawn and removed. Gastritis antrum-biopsy. ADVERSE EVENTS: There were no complications. IMPRESSIONS: 1. Gastritis antrum-biopsy 2. Retroflexed views revealed a hiatal hernia RECOMMENDATIONS: 1. Await biopsy results. Biopsy results will not be ready for 7-10 days. If you don't hear from us in two weeks, call our office for biopsy results. 2. Anti-reflux regimen 3. Continue PPI 4. Resume diet PATIENT CONDITION: stable DISPOSITION: Inpatient REPEAT EXAM: Return 3 years EGD Shelby Herndon MD eSigned: Shelby Herndon MD 06/20/2018 9:26 AM cc:
[2018-06-20] MEDS: levETIRAcetam 1000mg/100mL Inj 100 ML IV.SIG SCH (11:43)
[2018-06-20] MEDS ORDERED: Pharmacy Ordered Lab Info OTHER ONE (11:45)
[2018-06-20 13:18] LABS: Alanine Aminotransferase 19 U/L (10-53); Alkaline Phosphatase 43 U/L (45-117); Phosphorus 2.6 mg/dL (2.5-4.9); Total Protein 6.5 g/dL (6.4-8.2)
[2018-06-20 13:19] LABS: Albumin 2.5 g/dL (3.4-5.0); Anion Gap 7 meq/L (5-15); Aspartate Aminotransferase 24 U/L (15-37); Blood Urea Nitrogen 12 mg/dL (7-18); Carbon Dioxide 25.3 meq/L (21.0-32.0); Chloride 112 meq/L (98-107); Glomerular Filtration Rate Greater Than 89 mL/min (>89); Glucose,Random 120 mg/dL (74-106); Magnesium 2.2 mg/dL (1.5-2.5); Potassium 4.2 meq/L (3.5-5.1); Sodium 144 meq/L (136-145)
--- NOTE | 2018-06-20 15:39 | P.PN ---
Subjective Interval history: Follow-up for coffee-ground, possible aspiration pneumonia in a patient with a history of Down syndrome. Patient is doing well. Resting in bed. Non-verbal. Afebrile. Hemodynamically stable. Physical Exam Vital signs: Vital Signs 06/19/18 16:00 06/19/18 17:00 06/19/18 17:01 Temperature 98.6 F Pulse Rate 87 85 86 Respiratory Rate 23 21 20 Blood Pressure 132/67 123/65 Pulse Oximetry 93 L 94 L 94 L 06/19/18 19:00 06/19/18 20:00 06/19/18 20:07 Temperature 97.6 F Pulse Rate 79 74 Respiratory Rate 16 18 Blood Pressure 105/60 Pulse Oximetry 95 97 93 L 06/19/18 21:04 06/20/18 00:00 06/20/18 04:00 Temperature 98.0 F 98 F Pulse Rate 71 62 Respiratory Rate 19 16 Blood Pressure 98/57 L 93/50 L Pulse Oximetry 90 L 95 97 06/20/18 06:43 06/20/18 07:00 06/20/18 08:15 Temperature 98.1 F Pulse Rate 65 Respiratory Rate 16 Blood Pressure 132/71 Pulse Oximetry 96 96 97 06/20/18 09:00 06/20/18 09:37 06/20/18 09:45 Temperature 98.1 F Pulse Rate 53 L 93 H 87 Respiratory Rate 14 18 20 Blood Pressure 113/55 L 111/64 111/64 Pulse Oximetry 99 96 96 06/20/18 10:00 06/20/18 10:15 06/20/18 11:29 Temperature Pulse Rate 76 68 53 L Respiratory Rate 18 16 14 Blood Pressure 105/60 105/60 Pulse Oximetry 92 L 95 06/20/18 12:00 Temperature 98.9 F Pulse Rate 71 Respiratory Rate 18 Blood Pressure 105/58 L Pulse Oximetry 95 Intake & Output 06/19/18 06/20/18 06/20/18 18:59 06:59 18:59 Intake Total 2049 1375 / 1375 500 / 500 Output Total 875 / 875 Balance 1175 / 1175 1375 / 1375 500 / 500 Weight 88.1 kg Intake: IV 1300 / 1300 1300 / 1300 300 / 300 NS Inj 1,000 ML @ 75 mls/hr IV. 1000 / 1000 CONT .[id number] [facility] Rx#:[id number] Unasyn Inj 3 GM In NS Inj 100 200 / 200 100 / 100 200 / 200 ML @ 200 mls/hr IV.SIG Q6H [facility] Rx#:[id number] KCl 20 mEq Premix Inj 20 meq In 100 / 100 100 ml @ 50 mls/hr IV.SIG Q2H PRN Rx#:[id number] NS Inj 1,000 ML @ Wide Open IV. 1000 / 1000 SIG BOLUS JANNETH Rx#:[id number] Keppra 1000 mg/100 mL Premix 100 / 100 100 / 100 100 / 100 100 ML @ 400 mls/hr IV.SIG Q12H JANNETH Rx#:[id number] Oral 750 / 750 75 / 75 Anesthesia Amount 200 / 200 Output: Urine 875 / 875 Other: Date of Last Bowel Movement 06/17/18 06/17/18 06/17/18 Narrative: GENERAL: Middle-aged white female w/ Down's in no acute distress, unable to answer questions. SKIN: Focused skin assessment warm and dry. HEENT: PERRLA, EOMI. No scleral icterus or conjunctival pallor. No lid lag or facial droop. CARDIOVASCULAR: Regular rate and rhythm. No obvious murmurs to auscultation. No chest tenderness to palpation. RESPIRATORY: No obvious rhonchi or wheezing. Clear to auscultation. Breath sounds equal bilaterally. GASTROINTESTINAL: Abdomen soft, non-tender, nondistended. BS normal. MUSCULOSKELETAL: Extremities without clubbing, cyanosis, or edema. No obvious deformities. NEUROLOGICAL: Awake, alert. No focal neurologic deficits. Moving both upper and lower extremities spontaneously. PSYCHIATRIC: Non-verbal. Results - Labs CBC & Chem 7: 06/20/18 05:01 06/20/18 12:19 Laboratory Results - last 24 hr 06/19/18 06/19/18 06/19/18 16:25 18:30 18:30 WBC RBC Hgb Hct MCV MCH MCHC RDW Plt Count MPV Neut % (Auto) Lymph % (Auto) Charles % (Auto) Eos % (Auto) Baso % (Auto) Neut # (Auto) Lymph # (Auto) Charles # (Auto) Eos # (Auto) Baso # (Auto) WBC Differential Differential Comment Sodium Potassium 3.7 Chloride Carbon Dioxide Anion Gap BUN Creatinine Estimated GFR POC Glucose 125 H Random Glucose Lactic Acid 1.3 Calcium Phosphorus Magnesium Total Bilirubin AST ALT Alkaline Phosphatase Total Protein Albumin Vancomycin Trough 06/20/18 06/20/18 06/20/18 00:39 05:01 05:14 WBC 7.1 RBC 3.54 L Hgb 12.3 Hct 36.6 MCV 103.4 H MCH 34.8 H MCHC 33.6 RDW 13.3 Plt Count 197 MPV 7.4 Neut % (Auto) 83.3 H Lymph % (Auto) 12.3 Charles % (Auto) 4.3 Eos % (Auto) 0.0 Baso % (Auto) 0.1 Neut # (Auto) 5.9 Lymph # (Auto) 0.9 L Charles # (Auto) 0.3 Eos # (Auto) 0.0 Baso # (Auto) 0.0 WBC Differential . Differential Comment Auto diff final Sodium Potassium Chloride Carbon Dioxide Anion Gap BUN Creatinine Estimated GFR POC Glucose 161 H 132 H Random Glucose Lactic Acid Calcium Phosphorus Magnesium Total Bilirubin AST ALT Alkaline Phosphatase Total Protein Albumin Vancomycin Trough 06/20/18 06/20/18 06/20/18 08:24 11:54 12:19 WBC RBC Hgb Hct MCV MCH MCHC RDW Plt Count MPV Neut % (Auto) Lymph % (Auto) Charles % (Auto) Eos % (Auto) Baso % (Auto) Neut # (Auto) Lymph # (Auto) Charles # (Auto) Eos # (Auto) Baso # (Auto) WBC Differential Differential Comment Sodium 144 Potassium 4.2 Chloride 112 H Carbon Dioxide 25.3 Anion Gap 7 BUN 12 Creatinine 0.64 Estimated GFR Greater than 89 POC Glucose 128 H 131 H Random Glucose 120 H Lactic Acid Calcium 8.0 L Phosphorus 2.6 Magnesium 2.2 Total Bilirubin 0.3 AST 24 ALT 19 Alkaline Phosphatase 43 L Total Protein 6.5 Albumin 2.5 L Vancomycin Trough Less than 0.8 L Microbiology 06/17/18 16:25 Blood - Peripheral Aerobic Blood Culture - Preliminary No growth in 3 days 06/17/18 16:25 Blood - Peripheral Anaerobic Blood Culture - Preliminary No growth in 3 days 06/17/18 16:25 Blood - Peripheral Aerobic Blood Culture - Preliminary No growth in 3 days 06/17/18 16:25 Blood - Peripheral Anaerobic Blood Culture - Preliminary No growth in 3 days Assessment and Plan - Assessment (1) SIRS (systemic inflammatory response syndrome) Code(s): R65.10 - Systemic inflammatory response syndrome (SIRS) of non- infectious origin without acute organ dysfunction Status: Acute (2) PNA (pneumonia) Code(s): J18.9 - Pneumonia, unspecified organism Status: Acute (3) Down syndrome Code(s): Q90.9 - Down syndrome, unspecified Status: Acute (4) Seizure disorder Code(s): G40.909 - Epilepsy, unspecified, not intractable, without status epilepticus Status: Acute - Plan This is a 63-year-old female with a PMH of Down's Syndrome, Dementia and Seizure Disorder who was sent to the ER from SNF due to vomiting and fever of 101.0. Per report, pt had episode of coffee-ground emesis followed by wheezing and fever, concern for possible aspiration. Chest x-ray did not reveal any consolidations. Lactic acid was around 2.5 on arrival. Coffee-ground emesis Possible aspiration pneumonia -Patient's hemoglobin is 14.5 on arrival -Hgb stable around 12.3. -Protonix 40 mg IV twice daily -Continue Unasyn 3 g every 6 hours. -If patient remains clinically stable and afebrile we will consider switching antibiotics to Augmentin liquid. Acute respiratory failure - hypoxic -Continue DuoNeb, Solu-medrol, supplemental oxygen History of Down syndrome History of seizure disorder -Continue Keppra intravenously for now. Continue lorazepam as needed. Full code. Lovenox. Discharge plan: We will transfer patient to the [facility] floor. If patient continues to do well, will consider discharging patient within the next 24 hours.
--- NOTE | 2018-06-20 16:18 | ECG ---
Date Performed: 06/19/2018 Time Performed: 21:38:34 PTAGE: 63 years EKG: SINUS TACHYCARDIA LOW QRS VOLTAGE IN PRECORDIAL LEADS Nonspecific ST-T wave changes ABNORMA L RHYTHonspecific M ECG PREVIOUS TRACING : 01/21/2016 09.28 Since the previous tracing, no significant change noted DOCTOR: Andre Mccrary Interpretating Date/Time 06/20/2018 16:39:27
[2018-06-20] MEDS: Enoxaparin Inj 40 MG/0.4 ML Syringe SQ SCH (17:17)
[2018-06-20] MEDS ORDERED: levETIRAcetam 500 MG Tablet PO SCH (21:00)
[2018-06-21] MEDS: Morphine Inj 4 MG/ML Vial IV.PUSH PRN ×2 (01:10→22:00)
[2018-06-21] MEDS: Insulin NovoLIN Regular Correctional Sugar Inj SQ SCH ×4 (01:12→17:42)
[2018-06-21 06:15] LABS: Baso % (Auto) 0.1 % (0.0-2.0); Hematocrit 35.4 % (35.0-46.0); Lymph # (Auto) 0.7 th/mm3 (1.0-4.8); Lymph % (Auto) 16.1 % (9.0-44.0); Mean Corpuscular HGB Conc 33.7 % (32.0-36.0); Mean Corpuscular Hemoglobin 34.6 pg (27.0-34.0); Mean Corpuscular Volume 102.6 fL (80.0-100.0); Mean Platelet Volume 7.3 fL (7.0-11.0); Mono # (Auto) 0.3 th/mm3 (0.0-0.9); Mono % (Auto) 6.3 % (0.0-8.0); Neut # (Auto) 3.5 th/mm3 (1.8-7.7); Neut % (Auto) 77.5 % (16.0-70.0); Platelet Count 171 th/mm3 (150-450); Red Blood Count 3.45 mil/mm3 (4.00-5.30); White Blood Count 4.5 th/mm3 (4.0-11.0)
[2018-06-21 06:35] LABS: Alanine Aminotransferase 20 U/L (10-53); Albumin 2.4 g/dL (3.4-5.0); Anion Gap 7 meq/L (5-15); Aspartate Aminotransferase 16 U/L (15-37); Blood Urea Nitrogen 12 mg/dL (7-18); Carbon Dioxide 25.6 meq/L (21.0-32.0); Chloride 112 meq/L (98-107); Glomerular Filtration Rate Greater Than 89 mL/min (>89); Glucose,Random 125 mg/dL (74-106); Magnesium 2.4 mg/dL (1.5-2.5); Phosphorus 3.1 mg/dL (2.5-4.9); Potassium 3.7 meq/L (3.5-5.1); Sodium 145 meq/L (136-145)
[2018-06-21 06:37] LABS: Alkaline Phosphatase 43 U/L (45-117); Total Protein 6.3 g/dL (6.4-8.2)
[2018-06-21] MEDS: MethylPREDNISolone Sod Succinate Inj 40 MG/ML Vial IV.PUSH SCH ×3 (06:39→22:00)
[2018-06-21] MEDS: Ampicillin/Sulbactam Inj 3 GM in Sodium Chloride 0.9% Inj 100 ML IV.SIG SCH ×4 (06:39→22:02)
[2018-06-21] MEDS: Sod Chloride 0.9% Inj 1,000 ML IV.CONT SCH ×2 (06:39→16:12)
[2018-06-21] MEDS: Pantoprazole Inj 40 MG Vial IV.PUSH SCH ×2 (08:36→22:01)
[2018-06-21] MEDS ORDERED: Sodium Chloride 0.9% 2 ML Flush PRN IV.FLUSH (09:23)
--- NOTE | 2018-06-21 11:28 | P.PNGI ---
Subjective Interval history: Patient sitting up in bed resting soundly with eyes closed. No apparent distress noted. Per RN, patient tolerated breakfast meal without difficulty. No nausea or vomiting. <GatoLupe - Last Filed: 06/21/18 11:19> Physical Exam Vital signs: Vital Signs 06/20/18 11:29 06/20/18 12:00 06/20/18 13:00 Temperature 98.9 F Pulse Rate 53 L 71 81 Respiratory Rate 14 18 19 Blood Pressure 105/58 L 136/63 Pulse Oximetry 95 96 06/20/18 14:00 06/20/18 14:01 06/20/18 15:00 Temperature Pulse Rate 69 69 76 Respiratory Rate 20 19 21 Blood Pressure 129/60 Pulse Oximetry 94 L 94 L 96 06/20/18 15:01 06/20/18 16:00 06/20/18 17:00 Temperature 98.5 F Pulse Rate 76 71 67 Respiratory Rate 21 21 35 H Blood Pressure 129/67 122/76 Pulse Oximetry 96 95 95 06/20/18 17:15 06/20/18 17:18 06/20/18 17:36 Temperature Pulse Rate 68 64 60 Respiratory Rate 23 22 21 Blood Pressure 189/87 H 173/90 H 163/86 H Pulse Oximetry 94 L 93 L 96 06/20/18 18:00 06/20/18 18:01 06/20/18 18:06 Temperature Pulse Rate 67 63 62 Respiratory Rate 23 23 25 H Blood Pressure 203/90 H 189/81 H Pulse Oximetry 94 L 93 L 93 L 06/20/18 18:17 06/20/18 19:00 06/20/18 20:00 Temperature Pulse Rate 69 63 70 Respiratory Rate 22 23 24 Blood Pressure 153/67 H 147/67 H 141/65 H Pulse Oximetry 94 L 97 96 06/20/18 20:35 06/20/18 21:00 06/20/18 21:45 Temperature Pulse Rate 68 94 H 75 Respiratory Rate 18 23 20 Blood Pressure 137/62 122/58 L Pulse Oximetry 96 94 L 93 L 06/20/18 22:00 06/21/18 00:00 06/21/18 07:47 Temperature 98.9 F Pulse Rate 73 71 56 L Respiratory Rate 23 18 16 Blood Pressure 109/52 L 107/54 L Pulse Oximetry 96 93 L 98 06/21/18 08:00 Temperature 98 F Pulse Rate 67 Respiratory Rate 18 Blood Pressure 106/63 Pulse Oximetry 97 Intake & Output 06/20/18 06/21/18 06/21/18 18:59 06:59 18:59 Intake Total 1600 / 1600 1100 / 1100 200 / 200 Output Total 150 / 150 Balance 1450 / 1450 1100 / 1100 200 / 200 Weight 84.1 kg Intake: IV 1400 / 1400 1100 / 1100 200 / 200 NS Inj 1,000 ML @ 75 mls/hr IV. 1000 / 1000 1000 / 1000 CONT .[id number] [facility] Rx#:[id number] Unasyn Inj 3 GM In NS Inj 100 300 / 300 100 / 100 200 / 200 ML @ 200 mls/hr IV.SIG Q6H [facility] Rx#:[id number] Keppra 1000 mg/100 mL Premix 100 / 100 100 ML @ 400 mls/hr IV.SIG Q12H [facility] Rx#:[id number] Anesthesia Amount 200 / 200 Output: Urine 150 / 150 Other: # Voids 2 Date of Last Bowel Movement 06/17/18 06/17/18 - Constitutional no acute distress - Routine HEENT Exam Head: Present: normocephalic - Routine Respiratory Exam Present: wheezes. Absent: accessory muscle use - Routine Cardiovascular Exam Present: RRR - Routine Abdominal Exam Present: soft, normoactive bowel sounds. Absent: tenderness, guarding, firm - Routine Extremities Exam Present: pulses intact. Absent: edema - Routine Skin Exam Present: dry, warm <Hoskins,Lupe - Last Filed: 06/21/18 11:19> Vital signs: Vital Signs 06/20/18 16:00 06/20/18 17:00 06/20/18 17:15 Temperature 98.5 F Pulse Rate 71 67 68 Respiratory Rate 21 35 H 23 Blood Pressure 122/76 189/87 H Pulse Oximetry 95 95 94 L 06/20/18 17:18 06/20/18 17:36 06/20/18 18:00 Temperature Pulse Rate 64 60 67 Respiratory Rate 22 21 23 Blood Pressure 173/90 H 163/86 H Pulse Oximetry 93 L 96 94 L 06/20/18 18:01 06/20/18 18:06 06/20/18 18:17 Temperature Pulse Rate 63 62 69 Respiratory Rate 23 25 H 22 Blood Pressure 203/90 H 189/81 H 153/67 H Pulse Oximetry 93 L 93 L 94 L 06/20/18 19:00 06/20/18 20:00 06/20/18 20:35 Temperature Pulse Rate 63 70 68 Respiratory Rate 23 24 18 Blood Pressure 147/67 H 141/65 H Pulse Oximetry 97 96 96 06/20/18 21:00 06/20/18 21:45 06/20/18 22:00 Temperature Pulse Rate 94 H 75 73 Respiratory Rate 23 20 23 Blood Pressure 137/62 122/58 L 109/52 L Pulse Oximetry 94 L 93 L 96 06/21/18 00:00 06/21/18 07:47 06/21/18 08:00 Temperature 98.9 F 98 F Pulse Rate 71 56 L 67 Respiratory Rate 18 16 18 Blood Pressure 107/54 L 106/63 Pulse Oximetry 93 L 98 97 06/21/18 12:00 06/21/18 13:18 Temperature 98.1 F Pulse Rate 64 69 Respiratory Rate 18 16 Blood Pressure 121/69 Pulse Oximetry 94 L Intake & Output 06/20/18 06/21/18 06/21/18 18:59 06:59 18:59 Intake Total 1600 / 1600 1100 / 1100 200 / 200 Output Total 150 / 150 Balance 1450 / 1450 1100 / 1100 200 / 200 Weight 84.1 kg Intake: IV 1400 / 1400 1100 / 1100 200 / 200 NS Inj 1,000 ML @ 75 mls/hr IV. 1000 / 1000 1000 / 1000 CONT .[id number] [facility] Rx#:[id number] Unasyn Inj 3 GM In NS Inj 100 300 / 300 100 / 100 200 / 200 ML @ 200 mls/hr IV.SIG Q6H [facility] Rx#:[id number] Keppra 1000 mg/100 mL Premix 100 / 100 100 ML @ 400 mls/hr IV.SIG Q12H [facility] Rx#:[id number] Anesthesia Amount 200 / 200 Output: Urine 150 / 150 Other: # Voids 2 Date of Last Bowel Movement 06/17/18 06/17/18 <Shelby Herndon - Last Filed: 06/21/18 15:36> Results - Labs CBC & Chem 7: 06/21/18 05:46 06/21/18 05:46 Laboratory Results - last 24 hr 10/15/18 10/15/18 10/16/18 11:54 12:19 01:10 WBC RBC Hgb Hct MCV MCH MCHC RDW Plt Count MPV Neut % (Auto) Lymph % (Auto) [place] % (Auto) Eos % (Auto) Baso % (Auto) Neut # (Auto) Lymph # (Auto) [place] # (Auto) Eos # (Auto) Baso # (Auto) WBC Differential Differential Comment Sodium 144 Potassium 4.2 Chloride 112 H Carbon Dioxide 25.3 Anion Gap 7 BUN 12 Creatinine 0.64 Estimated GFR Greater than 89 POC Glucose 131 H 153 H Random Glucose 120 H Calcium 8.0 L Phosphorus 2.6 Magnesium 2.2 Total Bilirubin 0.3 AST 24 ALT 19 Alkaline Phosphatase 43 L Total Protein 6.5 Albumin 2.5 L Vancomycin Trough Less than 0.8 L 06/21/18 06/21/18 06/21/18 05:46 05:46 06:38 WBC 4.5 RBC 3.45 L Hgb 12.0 Hct 35.4 MCV 102.6 H MCH 34.6 H MCHC 33.7 RDW 13.0 Plt Count 171 MPV 7.3 Neut % (Auto) 77.5 H Lymph % (Auto) 16.1 [place] % (Auto) 6.3 Eos % (Auto) 0.0 Baso % (Auto) 0.1 Neut # (Auto) 3.5 Lymph # (Auto) 0.7 L [place] # (Auto) 0.3 Eos # (Auto) 0.0 Baso # (Auto) 0.0 WBC Differential . Differential Comment Auto diff final Sodium 145 Potassium 3.7 Chloride 112 H Carbon Dioxide 25.6 Anion Gap 7 BUN 12 Creatinine 0.57 Estimated GFR Greater than 89 POC Glucose 129 H Random Glucose 125 H Calcium 8.0 L Phosphorus 3.1 Magnesium 2.4 Total Bilirubin 0.2 AST 16 ALT 20 Alkaline Phosphatase 43 L Total Protein 6.3 L Albumin 2.4 L Vancomycin Trough Microbiology 06/17/18 16:25 Blood - Peripheral Aerobic Blood Culture - Preliminary No growth in 4 days 06/17/18 16:25 Blood - Peripheral Anaerobic Blood Culture - Preliminary No growth in 4 days 06/17/18 16:25 Blood - Peripheral Aerobic Blood Culture - Preliminary No growth in 4 days 06/17/18 16:25 Blood - Peripheral Anaerobic Blood Culture - Preliminary No growth in 4 days <Lupe Hoskins - Last Filed: 06/21/18 11:19> - Labs CBC & Chem 7: 06/21/18 05:46 06/21/18 05:46 Laboratory Results - last 24 hr 06/21/18 06/21/18 06/21/18 01:10 05:46 05:46 WBC 4.5 RBC 3.45 L Hgb 12.0 Hct 35.4 MCV 102.6 H MCH 34.6 H MCHC 33.7 RDW 13.0 Plt Count 171 MPV 7.3 Neut % (Auto) 77.5 H Lymph % (Auto) 16.1 [place] % (Auto) 6.3 Eos % (Auto) 0.0 Baso % (Auto) 0.1 Neut # (Auto) 3.5 Lymph # (Auto) 0.7 L [place] # (Auto) 0.3 Eos # (Auto) 0.0 Baso # (Auto) 0.0 WBC Differential . Differential Comment Auto diff final Sodium 145 Potassium 3.7 Chloride 112 H Carbon Dioxide 25.6 Anion Gap 7 BUN 12 Creatinine 0.57 Estimated GFR Greater than 89 POC Glucose 153 H Random Glucose 125 H Calcium 8.0 L Phosphorus 3.1 Magnesium 2.4 Total Bilirubin 0.2 AST 16 ALT 20 Alkaline Phosphatase 43 L Total Protein 6.3 L Albumin 2.4 L 06/21/18 06/21/18 06:38 11:44 WBC RBC Hgb Hct MCV MCH MCHC RDW Plt Count MPV Neut % (Auto) Lymph % (Auto) [place] % (Auto) Eos % (Auto) Baso % (Auto) Neut # (Auto) Lymph # (Auto) [place] # (Auto) Eos # (Auto) Baso # (Auto) WBC Differential Differential Comment Sodium Potassium Chloride Carbon Dioxide Anion Gap BUN Creatinine Estimated GFR POC Glucose 129 H 112 H Random Glucose Calcium Phosphorus Magnesium Total Bilirubin AST ALT Alkaline Phosphatase Total Protein Albumin Microbiology 06/17/18 16:25 Blood - Peripheral Aerobic Blood Culture - Preliminary No growth in 4 days 06/17/18 16:25 Blood - Peripheral Anaerobic Blood Culture - Preliminary No growth in 4 days 06/17/18 16:25 Blood - Peripheral Aerobic Blood Culture - Preliminary No growth in 4 days 06/17/18 16:25 Blood - Peripheral Anaerobic Blood Culture - Preliminary No growth in 4 days <Shelby Herndon - Last Filed: 06/21/18 15:36> Assessment and Plan - Plan - coffee-ground emesis One episode of coffee-ground emesis followed by wheezing and fever, concern for possible aspiration. Pt unable to provide history due to cognition status, thus, HPI obtained from nurse, EMR and brother by bed side. Pt with no previous hx of GI bleed, never had EGD before. Hgb is 12.2 which is a decline from 14.5. No melena or hematochezia reported - concern for possible aspiration. s/p evaluation by ST who recommended puree diet and thin liquid - Sepsis- On admission Lactic Acid 2.5. today is 7.7, was started on abx. blood cx negative so far - CHF with fluid over load- Echo pending, diuretics - Acute respiratory failure- per [facility] on o2 2L via NC - PMH of Down's Syndrome, Dementia and Seizure Disorder per [facility] 06/21/2018 Coffee-ground emesis Patient sitting up upright in bed. Nurse reports patient tolerated breakfast meal without any difficulty. Denies any noted vomiting or bleeding. Hemoglobin 12.0 hematocrit 35.4. Patient post EGD on 06/20/2018 with the following findings--> Gastritis antrum-biopsy Retroflexed views revealed a hiatal hernia. Plan -Diet as tolerated -Antireflux regimen -Continue PPI -Recommended repeat for EGD 3 years -Monitor for any bleeding -Supportive care -Further recommendations to follow based on patient's status This patient has been seen by myself and Dr. FELIZ and this note is written on her behalf - Attending Attestation Dr. Herndon <Lupe Hoskins - Last Filed: 06/21/18 11:19> - Attending Attestation abnormal ct -we will order colonoscopy in am, if unable to drink prep we will schedule flexisigmoidoscopy <Shelby Herndon - Last Filed: 06/21/18 15:36>
--- NOTE | 2018-06-21 15:53 | P.PN ---
Subjective Interval history: Follow-up for coffee-ground, possible aspiration pneumonia in a patient with a history of Down syndrome. Patient remains nonverbal. No fever or chills. Physical Exam Vital signs: Vital Signs 06/20/18 16:00 06/20/18 17:00 06/20/18 17:15 Temperature 98.5 F Pulse Rate 71 67 68 Respiratory Rate 21 35 H 23 Blood Pressure 122/76 189/87 H Pulse Oximetry 95 95 94 L 06/20/18 17:18 06/20/18 17:36 06/20/18 18:00 Temperature Pulse Rate 64 60 67 Respiratory Rate 22 21 23 Blood Pressure 173/90 H 163/86 H Pulse Oximetry 93 L 96 94 L 06/20/18 18:01 06/20/18 18:06 06/20/18 18:17 Temperature Pulse Rate 63 62 69 Respiratory Rate 23 25 H 22 Blood Pressure 203/90 H 189/81 H 153/67 H Pulse Oximetry 93 L 93 L 94 L 06/20/18 19:00 06/20/18 20:00 06/20/18 20:35 Temperature Pulse Rate 63 70 68 Respiratory Rate 23 24 18 Blood Pressure 147/67 H 141/65 H Pulse Oximetry 97 96 96 06/20/18 21:00 06/20/18 21:45 06/20/18 22:00 Temperature Pulse Rate 94 H 75 73 Respiratory Rate 23 20 23 Blood Pressure 137/62 122/58 L 109/52 L Pulse Oximetry 94 L 93 L 96 06/21/18 00:00 06/21/18 07:47 06/21/18 08:00 Temperature 98.9 F 98 F Pulse Rate 71 56 L 67 Respiratory Rate 18 16 18 Blood Pressure 107/54 L 106/63 Pulse Oximetry 93 L 98 97 06/21/18 12:00 06/21/18 13:18 Temperature 98.1 F Pulse Rate 64 69 Respiratory Rate 18 16 Blood Pressure 121/69 Pulse Oximetry 94 L Intake & Output 06/20/18 06/21/18 06/21/18 18:59 06:59 18:59 Intake Total 1600 / 1600 1100 / 1100 200 / 200 Output Total 150 / 150 Balance 1450 / 1450 1100 / 1100 200 / 200 Weight 84.1 kg Intake: IV 1400 / 1400 1100 / 1100 200 / 200 NS Inj 1,000 ML @ 75 mls/hr IV. 1000 / 1000 1000 / 1000 CONT .[id number] JANNETH Rx#:[id number] Unasyn Inj 3 GM In NS Inj 100 300 / 300 100 / 100 200 / 200 ML @ 200 mls/hr IV.SIG Q6H JANNET[facility] Rx#:[id number] Keppra 1000 mg/100 mL Premix 100 / 100 100 ML @ 400 mls/hr IV.SIG Q12H JANNET[facility] Rx#:[id number] Anesthesia Amount 200 / 200 Output: Urine 150 / 150 Other: # Voids 2 Date of Last Bowel Movement 06/17/18 06/17/18 Narrative: GENERAL: Middle-aged white female w/ Down's in no acute distress, unable to answer questions. SKIN: Focused skin assessment warm and dry. HEENT: PERRLA, EOMI. No scleral icterus or conjunctival pallor. No lid lag or facial droop. CARDIOVASCULAR: Regular rate and rhythm. No obvious murmurs to auscultation. No chest tenderness to palpation. RESPIRATORY: No obvious rhonchi or wheezing. Clear to auscultation. Breath sounds equal bilaterally. GASTROINTESTINAL: Abdomen soft, non-tender, nondistended. BS normal. MUSCULOSKELETAL: Extremities without clubbing, cyanosis, or edema. No obvious deformities. NEUROLOGICAL: Awake, alert. No focal neurologic deficits. Moving both upper and lower extremities spontaneously. PSYCHIATRIC: Non-verbal. Results - Labs CBC & Chem 7: 06/21/18 05:46 06/21/18 05:46 Laboratory Results - last 24 hr 06/21/18 06/21/18 06/21/18 01:10 05:46 05:46 WBC 4.5 RBC 3.45 L Hgb 12.0 Hct 35.4 MCV 102.6 H MCH 34.6 H MCHC 33.7 RDW 13.0 Plt Count 171 MPV 7.3 Neut % (Auto) 77.5 H Lymph % (Auto) 16.1 [place] % (Auto) 6.3 Eos % (Auto) 0.0 Baso % (Auto) 0.1 Neut # (Auto) 3.5 Lymph # (Auto) 0.7 L [place] # (Auto) 0.3 Eos # (Auto) 0.0 Baso # (Auto) 0.0 WBC Differential . Differential Comment Auto diff final Sodium 145 Potassium 3.7 Chloride 112 H Carbon Dioxide 25.6 Anion Gap 7 BUN 12 Creatinine 0.57 Estimated GFR Greater than 89 POC Glucose 153 H Random Glucose 125 H Calcium 8.0 L Phosphorus 3.1 Magnesium 2.4 Total Bilirubin 0.2 AST 16 ALT 20 Alkaline Phosphatase 43 L Total Protein 6.3 L Albumin 2.4 L 06/21/18 06/21/18 06:38 11:44 WBC RBC Hgb Hct MCV MCH MCHC RDW Plt Count MPV Neut % (Auto) Lymph % (Auto) [place] % (Auto) Eos % (Auto) Baso % (Auto) Neut # (Auto) Lymph # (Auto) [place] # (Auto) Eos # (Auto) Baso # (Auto) WBC Differential Differential Comment Sodium Potassium Chloride Carbon Dioxide Anion Gap BUN Creatinine Estimated GFR POC Glucose 129 H 112 H Random Glucose Calcium Phosphorus Magnesium Total Bilirubin AST ALT Alkaline Phosphatase Total Protein Albumin Microbiology 06/17/18 16:25 Blood - Peripheral Aerobic Blood Culture - Preliminary No growth in 4 days 06/17/18 16:25 Blood - Peripheral Anaerobic Blood Culture - Preliminary No growth in 4 days 06/17/18 16:25 Blood - Peripheral Aerobic Blood Culture - Preliminary No growth in 4 days 06/17/18 16:25 Blood - Peripheral Anaerobic Blood Culture - Preliminary No growth in 4 days - Imaging Chest X-Ray 06/17/18 15:59 CONCLUSION: Moderate cardiomegaly with mild failure. No alveolar consolidation. Chest X-Ray 06/18/18 18:01 CONCLUSION: 1. Mild bibasilar airspace disease which may reflect atelectasis. Differential considerations include aspiration or pneumonia in the proper clinical setting. Abdomen/Pelvis CT 06/19/18 00:00 CONCLUSION: 1. New abnormal diffuse bladder wall thickening which may represent an acute infectious process. Correlate with laboratory evaluation. 2. Asymmetric wall thickening identified within the distal sigmoid and rectal colon. The adjacent mesenteric fat is unremarkable. 3. Osteopenia with insufficiency fractures as noted above. Chest CTA 06/19/18 00:00 CONCLUSION: 1. No evidence of PE. 2. There is mild diffuse interstitial thickening identified in a perivascular distribution. Given the overall normal size of the heart and pulmonary vessels this may reflect edema related to atypical pneumonia or viral infection. Chest X-Ray 06/19/18 08:00 CONCLUSION: Radiographic findings concerning for volume overload versus congestive heart failure. Improved aeration of the left lower lobe. Assessment and Plan - Assessment (1) SIRS (systemic inflammatory response syndrome) Code(s): R65.10 - Systemic inflammatory response syndrome (SIRS) of non- infectious origin without acute organ dysfunction Status: Acute (2) PNA (pneumonia) Code(s): J18.9 - Pneumonia, unspecified organism Status: Acute (3) Down syndrome Code(s): Q90.9 - Down syndrome, unspecified Status: Acute (4) Seizure disorder Code(s): G40.909 - Epilepsy, unspecified, not intractable, without status epilepticus Status: Acute - Plan This is a 63-year-old female with a PMH of Down's Syndrome, Dementia and Seizure Disorder who was sent to the ER from [facility] due to vomiting and fever of 101.0. Per report, pt had episode of coffee-ground emesis followed by wheezing and fever, concern for possible aspiration. Chest x-ray did not reveal any consolidations. Lactic acid was around 2.5 on arrival. Coffee-ground emesis Possible aspiration pneumonia -Patient's hemoglobin is 14.5 on arrival -Hgb stable around 12.3. -Protonix 40 mg IV twice daily -Continue Unasyn 3 g every 6 hours. Likely switch to Augmentin upon discharge. -Discussed with GI. CT abdomen pelvis showed asymmetric wall thickening identified within the distal sigmoid and rectal colon. -We will start Maxitrol x2 today. Clear liquid diet. Sigmoidoscopy tomorrow morning. Acute respiratory failurr -currently resolved. -Continue DuoNeb, Solu-medrol, supplemental oxygen History of Down syndrome History of seizure disorder -Continue Keppra liquid. Continue lorazepam as needed. Full code. Lovenox (hold for procedure tomorrow).
[2018-06-21] MEDS ORDERED: Magnesium Citrate Liq 300 ML Bottle PO ONE (16:15)
[2018-06-21] MEDS: Magnesium Citrate Liq 300 ML Bottle PO ONE (22:02)
[2018-06-21] MEDS: Sodium Chloride 0.9% 2 ML Flush BID IV.FLUSH SCH (22:02)
[2018-06-22] MEDS: Magnesium Citrate Liq 300 ML Bottle PO ONE (05:08)
[2018-06-22] MEDS: MethylPREDNISolone Sod Succinate Inj 40 MG/ML Vial IV.PUSH SCH ×2 (06:16→13:22)
[2018-06-22] MEDS: Morphine Inj 4 MG/ML Vial IV.PUSH PRN (06:17)
[2018-06-22] MEDS: Insulin NovoLIN Regular Correctional Sugar Inj SQ SCH ×4 (06:18→18:19)
[2018-06-22] MEDS: Sod Chloride 0.9% Inj 1,000 ML IV.CONT SCH (06:18)
[2018-06-22] MEDS: Ampicillin/Sulbactam Inj 3 GM in Sodium Chloride 0.9% Inj 100 ML IV.SIG SCH ×3 (06:18→18:20)
[2018-06-22] MEDS ORDERED: Chlorhexidine Gluconate 2% 1 Pack (2 Cloths) TOPICAL ONE (06:58)
[2018-06-22] MEDS ORDERED: Sodium Chlor 0.9% Inj 500 ML IV.SIG SCH (07:00)
[2018-06-22] MEDS: Sodium Chloride 0.9% 2 ML Flush BID IV.FLUSH SCH (08:12)
[2018-06-22] MEDS: Pantoprazole Inj 40 MG Vial IV.PUSH SCH (08:12)
[2018-06-22] MEDS ORDERED: Ketamine Inj 50 MG/5 ML Syringe IV.PUSH ONE (14:21)
[2018-06-22] MEDS ORDERED: Glycopyrrolate Inj 1 MG/5 ML Syringe IV.PUSH ONE (14:24)
--- NOTE | 2018-06-22 14:41 | GIPROC ---
[facility] [address] [facility]. [facility], [address] COLONOSCOPY PROCEDURE REPORT EXAM DATE: 06/22/2018 PATIENT NAME: Shagufta Feliciano MR #: [id number] BIRTHDATE: 1955 ENDOSCOPIST: Shelby Herndon MD ORDER #: [id number] FILTROSE CRUSHER: Freida Donald and Shira Beltran STATUS: inpatient INDICATIONS: The patient is a 63 yr old female here for a colonoscopy due to abnormal ct PROCEDURE PERFORMED: Colonoscopy, diagnostic MEDICATIONS: None and Per Anesthesia. PREP QUALITY: poor PREP TYPE:Other: ESTIMATED BLOOD LOSS: None CONSENT: The patient understands the risks and benefits of the procedure and understands that these risks include, but are not limited to: sedation, allergic reaction, infection, perforation and/or bleeding. Alternative means of evaluation and treatment include, among others: physical exam, x-rays, and/or surgical intervention. The patient elects to proceed with this endoscopic procedure. medical equipment was checked for proper function. Hand hygiene and appropriate measures for infection prevention was taken. After the risks, benefits and alternatives of the procedure were thoroughly explained, Informed consent was verified, confirmed and timeout was successfully executed by the treatment team. A digital exam revealed external hemorrhoids The Pentax [id number] endoscope was introduced through the anus and advanced to the cecum, which was identified by both the appendix and ileocecal valve. The instrument was then slowly withdrawn as the colon was fully examined. COLON FINDINGS: Poor prep. No abnormality seen in the area indicated on ct abd/pelvis , just stool. Retroflexed views revealed internal hemorrhoids and Retroflexed views revealed small internal hemorrhoids The scope was then completely withdrawn from the patient and the procedure terminated. PROCEDURE WITHDRAWAL TIME:6minutes ADVERSE EVENTS: There were no complications. IMPRESSIONS: 1. Poor prep 2. Retroflexed views revealed internal hemorrhoids 3. Retroflexed views revealed small internal hemorrhoids 4. Revealed external hemorrhoids RECOMMENDATIONS: 1. Benefiber 2 tsp daily 2. Probiotics from any [employer] or health food store 3. Ok to dc home from [facility] point [facility] will sin off RECALL: Return 1 year Colonoscopy Shelby Herndon MD eSigned: Shelby Herndon MD 06/22/2018 2:41 PM cc: PATIENT NAME: Shagufta Feliciano MR#: [id number]
--- NOTE | 2018-06-22 18:00 | P.PN ---
Physical Exam Vital signs: Vital Signs 06/21/18 20:00 06/21/18 21:40 06/22/18 00:00 Temperature 99.4 F 98.8 F Pulse Rate 76 79 90 Respiratory Rate 16 20 16 Blood Pressure 104/73 115/65 Pulse Oximetry 96 92 L 96 06/22/18 07:35 06/22/18 08:00 06/22/18 14:49 Temperature 98.0 F 97.1 F L Pulse Rate 70 83 80 Respiratory Rate 18 18 20 Blood Pressure 155/79 H 148/72 H Pulse Oximetry 94 L 95 99 06/22/18 16:53 Temperature Pulse Rate Respiratory Rate Blood Pressure Pulse Oximetry 99 Intake & Output 06/21/18 06/22/18 06/22/18 18:59 06:59 18:59 Intake Total 1300 / 1300 2300 / 2300 300 / 300 Output Total 800 / 800 950 / 950 Balance 1300 / 1300 1500 / 1500 -650 / -650 Weight 84.1 kg Intake: IV 1300 / 1300 1100 / 1100 200 / 200 NS Inj 1,000 ML @ 75 mls/hr IV. 1000 / 1000 1000 / 1000 CONT .[id number] [facility] Rx#:[id number] Unasyn Inj 3 GM In NS Inj 100 300 / 300 100 / 100 200 / 200 ML @ 200 mls/hr IV.SIG Q6H [facility] Rx#:[id number] Oral 1200 / 1200 Anesthesia Amount 100 / 100 Output: Urine 800 / 800 950 / 950 Results - Labs CBC & Chem 7: 06/21/18 05:46 06/21/18 05:46 Laboratory Results - last 24 hr 06/21/18 06/22/18 06/22/18 22:04 06:14 10:40 POC Glucose 135 H 102 134 H 06/22/18 06/22/18 15:30 16:31 POC Glucose 128 H 116 H Microbiology 06/17/18 16:25 Blood - Peripheral Aerobic Blood Culture - Final No growth in 5 days 06/17/18 16:25 Blood - Peripheral Anaerobic Blood Culture - Final No growth in 5 days 06/17/18 16:25 Blood - Peripheral Aerobic Blood Culture - Final No growth in 5 days 06/17/18 16:25 Blood - Peripheral Anaerobic Blood Culture - Final No growth in 5 days Assessment and Plan - Assessment (1) SIRS (systemic inflammatory response syndrome) Code(s): R65.10 - Systemic inflammatory response syndrome (SIRS) of non- infectious origin without acute organ dysfunction Status: Acute (2) PNA (pneumonia) Code(s): J18.9 - Pneumonia, unspecified organism Status: Acute (3) Down syndrome Code(s): Q90.9 - Down syndrome, unspecified Status: Acute (4) Seizure disorder Code(s): G40.909 - Epilepsy, unspecified, not intractable, without status epilepticus Status: Acute - Plan This is a 63-year-old female with a PMH of Down's Syndrome, Dementia and Seizure Disorder who was sent to the ER from [facility] due to vomiting and fever of 101.0. Per report, pt had episode of coffee-ground emesis followed by wheezing and fever, concern for possible aspiration. Chest x-ray did not reveal any consolidations. Lactic acid was around 2.5 on arrival. Coffee-ground emesis Possible aspiration pneumonia -Patient's hemoglobin is 14.5 on arrival -Hgb stable around 12.3. -Protonix 40 mg IV twice daily -Continue Unasyn 3 g every 6 hours. Likely switch to Augmentin upon discharge. -Discussed with GI. CT abdomen pelvis showed asymmetric wall thickening identified within the distal sigmoid and rectal colon. -We will start Maxitrol x2 today. Clear liquid diet. Sigmoidoscopy tomorrow morning. Acute respiratory failurr -currently resolved. -Continue DuoNeb, Solu-medrol, supplemental oxygen History of Down syndrome History of seizure disorder -Continue Keppra liquid. Continue lorazepam as needed. Full code. Lovenox (hold for procedure tomorrow).
--- NOTE | 2018-06-22 22:56 | P.DS ---
Date of admission: 06/17/18 17:54 Primary care physician: José Haddad MD Brief History from admission: This is a 63-year-old female with a PMH of Down's Syndrome, Dementia and Seizure Disorder who was sent to the ER from SNF due to vomiting and fever of 101.0. Per report, pt had episode of coffee-ground emesis followed by wheezing and fever, concern for possible aspiration. Pt unable to provide history due to mental condition. On arrival, BP 156/68, HR 110, O2 sat 90% on RA, Temp 101. See unremarkable. Chemistry essentially unremarkable except for BUN 19. Lactic Acid 2.5. S/p Blood Cultures, Vanc/Cefepime. DS: Diagnosis - Discharge Diagnosis (1) SIRS (systemic inflammatory response syndrome) Status: Acute (2) PNA (pneumonia) Status: Acute (3) Down syndrome Status: Acute (4) Seizure disorder Status: Acute DS: Summary Hospital Course: This is a 63-year-old female with a PMH of Down's Syndrome, Dementia and Seizure Disorder who was sent to the ER from SNF due to vomiting and fever of 101.0. Per report, pt had episode of coffee-ground emesis followed by wheezing and fever, concern for possible aspiration. Chest x-ray did not reveal any consolidations. Lactic acid was around 2.5 on arrival. Sepsis (Tachycardia HR > 90, HR > 20, suspected infection aspiration Pneumonia) . Coffee-ground emesis Possible aspiration pneumonia -Patient's hemoglobin is 14.5 on arrival -Hgb stable around 12.3. -Protonix 40 mg IV twice daily -Continue Unasyn 3 g every 6 hours. Likely switch to Augmentin upon discharge. -Discussed with GI. CT abdomen pelvis showed asymmetric wall thickening identified within the distal sigmoid and rectal colon. -Patient underwent flexible sigmoidoscopy today. GI cleared for discharged after procedure. Acute respiratory failurr -currently resolved. -Continue DuoNeb, Solu-medrol, supplemental oxygen History of Down syndrome History of seizure disorder -Continue Keppra liquid. Continue lorazepam as needed. - Time Spent with Patient Total time spent providing and/or coordinating discharge services: Less than 30 minutes - Quality: VTE Deep Vein Thrombosis/Pulmonary Embolism Present on Admission: No Exam Vital signs: Vital Signs 06/22/18 00:00 06/22/18 07:35 06/22/18 08:00 Temperature 98.8 F 98.0 F Pulse Rate 90 70 83 Respiratory Rate 18 Blood Pressure 115/65 155/79 H Pulse Oximetry 96 94 L 95 06/22/18 14:49 06/22/18 16:53 Temperature 97.1 F L Pulse Rate 80 Respiratory Rate 20 Blood Pressure 148/72 H Pulse Oximetry 99 99 Intake & Output 06/22/18 06/22/18 06/23/18 06:59 18:59 06:59 Intake Total 2300 / 2300 300 / 300 Output Total 800 / 800 950 / 950 Balance 1500 / 1500 -650 / -650 Weight 84.1 kg Intake: IV 1100 / 1100 200 / 200 NS Inj 1,000 ML @ 75 mls/hr IV. 1000 / 1000 CONT .[id number] JANNETH Rx#:[id number] Unasyn Inj 3 GM In NS Inj 100 100 / 100 200 / 200 ML @ 200 mls/hr IV.SIG Q6H JANNETH Rx#:[id number] Oral 1200 / 1200 Anesthesia Amount 100 / 100 Output: Urine 800 / 800 950 / 950 Narrative: GENERAL: Middle-aged white female w/ Down's in no acute distress, unable to answer questions. SKIN: Focused skin assessment warm and dry. HEENT: PERRLA, EOMI. No scleral icterus or conjunctival pallor. No lid lag or facial droop. CARDIOVASCULAR: Regular rate and rhythm. No obvious murmurs to auscultation. No chest tenderness to palpation. RESPIRATORY: No obvious rhonchi or wheezing. Clear to auscultation. Breath sounds equal bilaterally. GASTROINTESTINAL: Abdomen soft, non-tender, nondistended. BS normal. MUSCULOSKELETAL: Extremities without clubbing, cyanosis, or edema. No obvious deformities. NEUROLOGICAL: Awake, alert. No focal neurologic deficits. Moving both upper and lower extremities spontaneously. PSYCHIATRIC: Non-verbal. Results Procedures completed during hospitalization: EGD 06/20/2018 IMPRESSIONS: 1. Gastritis antrum-biopsy 2. Retroflexed views revealed a hiatal hernia RECOMMENDATIONS: 1. Await biopsy results. Biopsy results will not be ready for 7-10 days. If you don't hear from us in two weeks, call our office for biopsy results. 2. Anti-reflux regimen 3. Continue PPI 4. Resume diet 06/23/2018 Colonoscopy IMPRESSIONS: 1. Poor prep 2. Retroflexed views revealed internal hemorrhoids 3. Retroflexed views revealed small internal hemorrhoids 4. Revealed external hemorrhoids RECOMMENDATIONS: 1. Benefiber 2 tsp daily 2. Probiotics from any [employer] or health food store 3. Ok to dc home from gi point gi will sin off RECALL: Return 1 year Colonoscopy Labs on day of discharge: Labs from last 24 hours 06/22/18 06/22/18 06/22/18 16:31 15:30 10:40 POC Glucose 116 H 128 H 134 H 06/22/18 06:14 POC Glucose 102 - Impressions ITS Impressions Abdomen/Pelvis CT 06/19/18 00:00 CONCLUSION: 1. New abnormal diffuse bladder wall thickening which may represent an acute infectious process. Correlate with laboratory evaluation. 2. Asymmetric wall thickening identified within the distal sigmoid and rectal colon. The adjacent mesenteric fat is unremarkable. 3. Osteopenia with insufficiency fractures as noted above. Chest CTA 06/19/18 00:00 CONCLUSION: 1. No evidence of PE. 2. There is mild diffuse interstitial thickening identified in a perivascular distribution. Given the overall normal size of the heart and pulmonary vessels this may reflect edema related to atypical pneumonia or viral infection. Chest X-Ray 06/19/18 08:00 CONCLUSION: Radiographic findings concerning for volume overload versus congestive heart failure. Improved aeration of the left lower lobe. Discharge Plan - Discharge Disposition Patient Disposition: Discharge to SNF - Discharge Condition Condition: Fair - Discharge Order Discharge Orders: Discharge Order (Routine); Ordered 06/22/18 Ordered By: Dion Vicente - Discharge Details Anticipated Discharge Date: 06/22/18 - Physicians Team Primary Care Provider: José Haddad Attending Provider: Dion Vicente Other Providers: Shelby Herndon MD ; Allan Santos MD
== END 2018-06-22 18:39 ==
LOC: NEPE 15:25 → NEDA 17:54 → N07 21:25 → HIMC 06-18 18:35 → N07 06-20 23:32 → UNDODISIN 06-22 15:44
PROVIDERS: ADMIT Hospitalist; ATTEND Hospitalist
PROC: PANENDO (2018-06-20 09:11)
PROC: COLONOS (2018-06-22 14:24)